=== PATIENT | female | born 1945 | race Caucasian/White ===

== ENCOUNTER 2017-01-24 16:46 | Inpatient (IN) | payer MEDICARE ==
[2017-01-24] MEDS ORDERED: Nitroglycerin 0.4 MG TAB (25 Tab Bottle) SL PRN (18:39)
[2017-01-24] MEDS ORDERED: Bisacodyl 5 MG TAB PO PRN (18:39)
[2017-01-24] MEDS: HYDROcodone/Acetaminophen 10/325 mg Tablet PO PRN (19:11)
[2017-01-24] MEDS ORDERED: Vancomycin HCl 750 MG in Sodium Chloride 0.9% 250 ML 250 ML IVPB SCH (19:15)
[2017-01-24] MEDS: Estradiol 1 MG TAB PO SCH (20:59)
[2017-01-24] MEDS: Docusate 100 MG CAP PO SCH (20:59)
[2017-01-24] MEDS: Metoprolol Tartrate 50 MG TAB PO SCH (20:59)
[2017-01-24 21:10] LABS: Vancomycin, Trough 18.1 ug/mL
[2017-01-24] MEDS: Vancomycin HCl 1 GM in Sodium Chloride 0.9% 250 ML 250 ML IVPB SCH (21:23)
[2017-01-24] MEDS ORDERED: MERREM IVPB SCH (22:00)
[2017-01-24] MEDS: Meropenem 500 MG in Sodium Chloride 0.9% 100 ML IVPB SCH ×2 (22:31)
--- NOTE | 2017-01-25 01:32 | HP ---
DATE OF ADMISSION: 01/24/2017 CHIEF COMPLAINT: Continued IV antibiotics, wound care, physical therapy for postoperative wound in her back. BRIEF HISTORY: This is a 71-year-old female who was admitted to [facility] on , with increasing pain in her incision site in her back. She apparently had lumbar spine crane rgery done. Thoracolumbar spine surgery done on 11/30 and had a cage placed by Dr. Grace from T1 0 to L3 per . Apparently the incision opened up and she was placed on Levaquin. She also maria d urinary catheter, which has been in place for a few months. She was noticing worsening pain and s ome drainage, and so presented to [facility]. She was evaluated and was noticed to have in fection growing Corynebacterium species. She was evaluated by Dr. Lorenz, who recommends that she be on Merrem, vancomycin for at least 4 more weeks. She was evaluated by Dr. Grace, who did the crane rgery and he recommended no wound VAC or removal of hardware, but continued wound packing entry heal ing by secondary intention. Wound care team has been managing the wound. She apparently has been h aving episodes of confusion and poor intake, but yesterday she apparently was more awake and eating and was deemed stable for discharge. Her states that her appetite has been fluctuating. No fever or chills. She continues to have a Walton catheter. PAST MEDICAL HISTORY: 1. Urinary retention. 2. Hypertension. 3. Coronary artery disease. 4. Paroxysmal atrial fibrillation. 5. Gastroesophageal reflux disease. 6. Osteoarthritis. 7. Thoracolumbar syndrome. 8. Hypothyroidism. 9. Dyslipidemia. PAST SURGICAL HISTORY: 1. Bilateral carpal tunnel release. 2. Laminectomy. 3. Radial keratotomy. 4. Left tennis elbow surgery. 5. History of spinal fusion with a cage from T10 to L3. 6. Radiofrequency ablation for possibly her AFib. 7. PTCA and stent placement. 8. Spinal stimulator placement. 9. Appendectomy. 10. Tonsillectomy. ALLERGIES: PENICILLIN, but she can tolerate MERREM. CURRENT MEDICATIONS: She has been admitted here with the following medications: Tylenol 650 q.4 p. r.n., Robert 10/325 q.6 p.r.n., Colace 100 mg b.i.d., Lasix 40 mg daily, Zestril 5 mg daily, Megace 4 00 mg daily, Merrem 1000 mg q.8 hours, Lopressor 50 mg b.i.d., Dulera inhaler 1 puff b.i.d. gargle stefany fter use, estradiol 1 mg daily, vancomycin 1 gram b.i.d., eye drops bimatoprost one drop daily, Plav ix 75 mg daily, Baskin thyroid 180 mg daily, Restasis 1 drop daily, Protonix 40 mg q.24 hours, Trama dol 50 mg q.6 p.r.n. FAMILY HISTORY: Noncontributory to current admission. PSYCHOSOCIAL HISTORY: No tobacco, alcohol, or IV drug abuse, supportive family. REVIEW OF SYSTEMS: Cardiovascular system: Denies any chest pain, shortness of breath, palpitations , PND, orthopnea, pedal edema. Respiratory system: Denies any chronic cough, expectoration, or ple uritic type chest pain. Gastrointestinal system: Denies any nausea, vomiting, GERD, diarrhea, cons tipation, hematemesis, melena, hematochezia. She has had episodes of anorexia. Genitourinary: She has some indwelling Walton catheter in place. Central Nervous System: Generalized weakness. She a lso has a flat affect. She is on aspiration precautions. PHYSICAL EXAMINATION: GENERAL: Pleasant 71-year-old female resting comfortably in no acute distress. VITAL SIGNS: She is afebrile. Heart rate is 84, respirations 16, oxygen saturation 98%, blood pres sure is 100/61. HEENT: Normocephalic, atraumatic. Pupils equal and reactive to light and accommodation. NECK: No JVD, thyromegaly, cervical adenopathy, throat exudates, or carotid bruits. CARDIOVASCULAR SYSTEM: S1, S2+, rate and rhythm regular. RESPIRATORY SYSTEM: Normal vesicular breath sounds heard in all lung robledo. ABDOMEN: Soft, nontender, bowel sounds heard in all quadrants. EXTREMITIES: Without cyanosis or clubbing. CENTRAL NERVOUS SYSTEM: Grossly nonfocal except generalized weakness. LABORATORY VALUES: Pending. IMPRESSION: 1. Lumbar spine surgery with wound dehiscence and infection requiring long-term antibiotics. 2. Hypertension. 3. Dyslipidemia. 4. Hypothyroidism. 5. Coronary artery disease. 6. Paroxysmal atrial fibrillation. 7. Deconditioning. PLAN: 1. Continue current medications. 2. Heart healthy diet. 3. Aspiration precautions. 4. DVT and stress ulcer prophylaxis. 5. Decubitus precautions. 6. Wound care per written instructions. 7. Vancomycin dosing to be adjusted by pharmacy. 8. Stress ulcer prophylaxis. 9. Weekly CBC, CRP, sed rate. 10. Consult physical therapy and occupational therapy. 11. Discussed with in detail. All questions answered. 12. We will make Dr. Grace for aware of her location if he wants to come and see her here or we will arrange for her to go visit him in his office.
[2017-01-25] MEDS: Meropenem 500 MG in Sodium Chloride 0.9% 100 ML IVPB SCH ×6 (05:30→22:39)
[2017-01-25] MEDS: Mometasone/Formoterol 60 PUFF AER INH SCH ×2 (05:31→17:52)
[2017-01-25 05:49] LABS: #Basophils 0.1 thou/uL (0.0-0.2); #Eosinphils 0.7 thou/uL (0.0-0.7); #Monocytes 1.1 thou/uL (0.11-0.59); #Neutrophils 8.2 thou/uL (1.40-6.50); %Eosinophils 5.9 % (0.0-10.0); %Lymphocytes 16.4 % (21.0-51.0); %Monocytes 9.3 % (0.0-10.0); %Neutrophils 67.4 % (42.0-75.0); Hemoglobin 12.1 g/dL (12.0-16.0); Mean Corpuscular HGB CONC 31.9 g/dL (32.0-36.0); Mean Corpuscular Hemoglobin 27.9 pg (27.0-31.0); Mean Corpuscular Volume 87.5 fl (81.0-99.0); Mean Platelet Volume 7.1 fL (7.4-10.4); Platelet Count 271 thou/uL (130-400); RBC Distribution Width 16.9 % (11.5-14.5); Red Blood Cell (RBC) Count 4.32 mill/uL (4.20-5.40); White Blood Cell (WBC) Count 12.2 thou/uL (4.8-10.8)
[2017-01-25 05:52] LABS: Anion Gap 14 mmol/L (10-20); BUN (Urea Nitrogen) 15 mg/dL (9.8-20.1); Calc. Creatinine Clearance 78 mL/min (70-130); Calcium 8.7 mg/dL (7.8-10.44); Carbon Dioxide 20 mmol/L (23-31); Chloride 106 mmol/L (98-107); Estimated GFR-MDRD Greater than 90; Glucose 80 mg/dL (80-115); Potassium 3.7 mmol/L (3.5-5.1); Sodium 136 mmol/L (136-145)
[2017-01-25] MEDS ORDERED: Vancomycin HCl 750 MG in Sodium Chloride 0.9% 250 ML 250 ML IVPB SCH (06:00)
[2017-01-25] MEDS ORDERED: Non-Formulary Item 1 EACH (Vancomycin Hcl [Vancomycin Hcl] 1 GM) IVPB SCH (06:00)
[2017-01-25] MEDS ORDERED: Vancomycin HCl 1 GM in Sodium Chloride 0.9% 250 ML 250 ML IVPB SCH (06:00)
[2017-01-25] MEDS: Vancomycin HCl 1 GM in Sodium Chloride 0.9% 250 ML 250 ML IVPB SCH ×2 (08:00→20:00)
[2017-01-25] MEDS ORDERED: Sodium Chloride 0.9% 20 ML ONE (08:24)
[2017-01-25] MEDS ORDERED: BIMATOPROST OP SCH (09:00)
[2017-01-25] MEDS: Clopidogrel Bisulfate 75 MG TAB PO SCH (09:00)
[2017-01-25] MEDS: Multivitamin W/ Minerals 1 TAB PO SCH (09:00)
[2017-01-25] MEDS: Furosemide 40 MG TAB PO SCH (09:00)
[2017-01-25] MEDS ORDERED: (Cyclosporine [Restasis Multidose] 1 DROP) OP SCH (09:00)
[2017-01-25] MEDS: CYCLOSPORINE OP SCH (09:00)
[2017-01-25] MEDS: Docusate 100 MG CAP PO SCH ×2 (09:00→20:29)
[2017-01-25] MEDS: Metoprolol Tartrate 50 MG TAB PO SCH ×2 (09:00→20:29)
[2017-01-25] MEDS: Megestrol Acetate 800 MG/20 ML UDCUP PO SCH (09:00)
[2017-01-25] MEDS: Lisinopril 5 MG TAB PO SCH (09:00)
[2017-01-25] MEDS: HYDROcodone/Acetaminophen 10/325 mg Tablet PO PRN (09:55)
[2017-01-25] MEDS: traMADol HCl 50 MG TAB PO PRN (15:40)
[2017-01-25] MEDS ORDERED: Citalopram Hydrobromide 10 MG TAB PO SCH (16:15)
[2017-01-25] MEDS: Citalopram Hydrobromide 10 MG TAB PO SCH (16:24)
[2017-01-25] MEDS: Enoxaparin Sodium 40 MG/0.4 ML SYRINGE SC SCH (17:50)
[2017-01-25] MEDS ORDERED: Sodium Chloride 0.9% 250 ML 250 ML ONE (20:03)
[2017-01-25] MEDS: Estradiol 1 MG TAB PO SCH (20:29)
[2017-01-25] MEDS: Latanoprost 0.005% Ophth Soln 2.5 ml Bottle EA EYE SCH (20:29)
--- NOTE | 2017-01-25 22:47 | PRG ---
DATE OF SERVICE: 01/25/2017 SUBJECTIVE: Ms. Almonte is more awake, up in her bed, eating lunch. She apparently did not eating a good breakfast, but she is eating lunch. She is also drinking her Ensure. and son are in t he room. I did discuss with them about possibly trying some antidepressants and she has a flat affe ct and they also said that they were thinking about the same thing. I did discuss with therapy and therapy feels that she needs daily wound care and they have apparently given instructions to the boris ses, family is aware. OBJECTIVE: VITAL SIGNS: She is afebrile, heart rate is 81, respiration rate 16, oxygen saturation 94%, blood p ressure 118/80. CARDIOVASCULAR: S1, S2 plus. RESPIRATORY: Normal vesicular breath sounds. ABDOMEN: Soft, nontender, bowel sounds heard in all quadrants. EXTREMITIES: Without cyanosis, clubbing or generalized weakness. LABORATORY VALUES: White count 12.2, H\T\H is 12.1 and 37.8. Chemistry shows a sodium 136, potassi um 3.7, BUN and creatinine is 15 and 0.62. IMPRESSION: 1. Wound dehiscence with infection in her back requiring long-term IV antibiotics. 2. Urinary retention, has Walton catheter. 3. Hypertension. 4. Coronary artery disease. 5. Paroxysmal atrial fibrillation. 6. Gastroesophageal reflux disease. 7. Osteoarthritis. 8. Hypothyroidism. 9. Dyslipidemia. 10. Depression. PLAN: 1. Start Celexa 10 mg p.o. daily. 2. Continue meropenem and vancomycin. 3. Nutritional support. 4. DVT and stress ulcer prophylaxis. 5. Decubitus precautions. 6. Daily wound dressing. 7. Weekly CBC, CRP, sed rate. 8. Physical therapy, occupational therapy, and speech therapy. 9. Dr. Camarillo customer retention specialist noon today till 9:00 p.m Saturday. Family aware and all questions answered.
[2017-01-26] MEDS: Meropenem 500 MG in Sodium Chloride 0.9% 100 ML IVPB SCH ×6 (05:58→22:07)
[2017-01-26] MEDS: Mometasone/Formoterol 60 PUFF AER INH SCH ×2 (06:37→19:20)
[2017-01-26 07:27] LABS: Hemoglobin 11.4 g/dL (12.0-16.0); Platelet Count 233 thou/uL (130-400)
[2017-01-26 07:36] LABS: Vancomycin, Trough 22.3 ug/mL
[2017-01-26 07:37] LABS: Calc. Creatinine Clearance 87 mL/min (70-130); Estimated GFR-MDRD Greater than 90
--- NOTE | 2017-01-26 08:30 | PRG ---
DATE OF SERVICE: 01/26/2017 SUBJECTIVE: The patient is lying in the bed awake, states she is in some pain, but appears to be ma inly depressed and possibly confused with a flat affect, states she is not eating very well, has no complaints of shortness of breath or chest pain, nausea, vomiting, or diarrhea. OBJECTIVE: VITAL SIGNS: Show her temperature is 98, pulse 105, respirations 20, O2 sats 97%. LUNGS: Clear. CARDIAC: Examination shows regular rhythm. BACK: Wound in the back is packed. Appears to be not inflamed with no drainage. GASTROINTESTINAL: Abdomen is soft and nontender. SKIN AND EXTREMITIES: Showed no edema. MUSCULOSKELETAL: Cranial nerves are intact. Deep tendon reflexes 2+ equal, absent Babinskis. NEUROLOGIC: Patient is oriented to person, but not to place and time. As mentioned above, has a ve ry flat affect. LABORATORY DATA: Yesterday only showed minimal white count of 12,200. Lungs are ASSESSMENT AND PLAN: 1. 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 2. Flat affect and disorientation, possibly due to severe depression. There is no evidence of any metabolic encephalopathy causing her symptomatology and we will monitor if she has recently been sta rted on antidepressants. 3. Poor oral intake and we will monitor closely and we will stress need for increased nutrition wit h supplements. 4. We will continue deep venous thrombosis and stress ulcer prophylaxis. 5. We will continue tramadol as needed for pain relief and stress. The patient to be up in a chair and ambulate with physical therapy when available.
[2017-01-26] MEDS: Acetaminophen 325 MG TAB PO PRN ×3 (08:34→19:16)
[2017-01-26] MEDS: traMADol HCl 50 MG TAB PO PRN ×3 (08:35→19:16)
[2017-01-26] MEDS: Vancomycin HCl 1 GM in Sodium Chloride 0.9% 250 ML 250 ML IVPB SCH (08:45)
[2017-01-26] MEDS: Docusate 100 MG CAP PO SCH ×2 (09:22→20:22)
[2017-01-26] MEDS: Multivitamin W/ Minerals 1 TAB PO SCH (09:22)
[2017-01-26] MEDS: Furosemide 40 MG TAB PO SCH (09:22)
[2017-01-26] MEDS: Clopidogrel Bisulfate 75 MG TAB PO SCH (09:22)
[2017-01-26] MEDS: Citalopram Hydrobromide 10 MG TAB PO SCH (09:23)
[2017-01-26] MEDS: Megestrol Acetate 800 MG/20 ML UDCUP PO SCH (09:24)
[2017-01-26] MEDS: CYCLOSPORINE OP SCH (09:24)
[2017-01-26] MEDS: Metoprolol Tartrate 50 MG TAB PO SCH ×2 (09:25→20:22)
[2017-01-26] MEDS: Lisinopril 5 MG TAB PO SCH (09:25)
[2017-01-26] MEDS: Vancomycin HCl 750 MG in Sodium Chloride 0.9% 250 ML 250 ML IVPB SCH ×2 (09:45→20:24)
[2017-01-26] MEDS: Enoxaparin Sodium 40 MG/0.4 ML SYRINGE SC SCH (19:17)
[2017-01-26] MEDS: Estradiol 1 MG TAB PO SCH (20:22)
[2017-01-26] MEDS: Latanoprost 0.005% Ophth Soln 2.5 ml Bottle EA EYE SCH (20:22)
[2017-01-26] MEDS: HYDROcodone/Acetaminophen 10/325 mg Tablet PO PRN (22:14)
[2017-01-27] MEDS: Meropenem 500 MG in Sodium Chloride 0.9% 100 ML IVPB SCH ×6 (05:21→22:17)
[2017-01-27] MEDS: Mometasone/Formoterol 60 PUFF AER INH SCH ×2 (05:31→18:15)
[2017-01-27 05:58] LABS: Calc. Creatinine Clearance 83 mL/min (70-130); Estimated GFR-MDRD Greater than 90
[2017-01-27] MEDS: Acetaminophen 325 MG TAB PO PRN ×2 (07:47→13:25)
[2017-01-27] MEDS: traMADol HCl 50 MG TAB PO PRN ×2 (07:47→13:25)
[2017-01-27] MEDS: Citalopram Hydrobromide 10 MG TAB PO SCH (08:03)
[2017-01-27] MEDS: Docusate 100 MG CAP PO SCH ×2 (08:04→20:50)
[2017-01-27] MEDS: Clopidogrel Bisulfate 75 MG TAB PO SCH (08:04)
[2017-01-27] MEDS: Megestrol Acetate 800 MG/20 ML UDCUP PO SCH (08:04)
[2017-01-27] MEDS: Lisinopril 5 MG TAB PO SCH (08:04)
[2017-01-27] MEDS: Multivitamin W/ Minerals 1 TAB PO SCH (08:04)
[2017-01-27] MEDS: Furosemide 40 MG TAB PO SCH (08:04)
[2017-01-27] MEDS: Metoprolol Tartrate 50 MG TAB PO SCH ×2 (08:04→20:50)
[2017-01-27] MEDS: Vancomycin HCl 750 MG in Sodium Chloride 0.9% 250 ML 250 ML IVPB SCH ×2 (09:04→20:51)
[2017-01-27] MEDS: CYCLOSPORINE OP SCH (09:05)
--- NOTE | 2017-01-27 10:09 | PRG ---
DATE OF SERVICE: 01/27/2017 Patient of Deepa Cordova M.D. SUBJECTIVE: The patient is a 71-year-old white female with history of an infection of a laminectomy with hardware placement who feels much better today with decreased pain, increased moving, increase d strength and asking to get out of bed and go to the bathroom. She states she slept much better la st night and has decreased pain in her legs, only some weakness in her legs and tingling. OBJECTIVE: VITAL SIGNS: Temperature is 97.3, pulse 88, respirations 18, O2 sats 96%, and blood pressure 113/67 . LUNGS: Clear. CARDIAC: Regular rhythm. ABDOMEN: Soft, nontender. Wound is clean and packed. LABORATORY DATA: Hemoglobin 11.4, hematocrit 35, and platelet 233. Vancomycin trough level yesterd ay was slightly elevated at 22.3 and dose was changed to 750 mg q.12 by pharmacy. ASSESSMENT: 1. Resolving Corynebacterium infection of artificial hardware laminectomy on meropenem and vancomyc in for 4 weeks with slightly elevated vancomycin level and decrease dose to 750 q.12. 2. Greatly improving affect and mood, possibly due to improvement in symptoms, possibly due to chayo lopram therapy and we will continue. 3. Poor oral intake, which is improving as the patient states that she is having increased appetite and did eat 90% of lunch yesterday and 50% of dinner and did eat her Ensure Complete. PLAN: Continue vancomycin at decrease dose. Continue meropenem. Continue citalopram. Stress incr eased ambulation. Continue to monitor oral intake. Dr. Cordova will be back tomorrow.
[2017-01-27] MEDS: Enoxaparin Sodium 40 MG/0.4 ML SYRINGE SC SCH (18:15)
[2017-01-27 20:27] LABS: Vancomycin, Trough 20.3 ug/mL
[2017-01-27] MEDS: Estradiol 1 MG TAB PO SCH (20:50)
[2017-01-27] MEDS: Latanoprost 0.005% Ophth Soln 2.5 ml Bottle EA EYE SCH (20:50)
[2017-01-27] MEDS: HYDROcodone/Acetaminophen 10/325 mg Tablet PO PRN (20:57)
[2017-01-28] MEDS: Meropenem 500 MG in Sodium Chloride 0.9% 100 ML IVPB SCH ×6 (05:22→21:48)
[2017-01-28] MEDS: Mometasone/Formoterol 60 PUFF AER INH SCH ×2 (05:42→17:23)
[2017-01-28 05:54] LABS: Calc. Creatinine Clearance 84 mL/min (70-130); Estimated GFR-MDRD Greater than 90
[2017-01-28] MEDS: Clopidogrel Bisulfate 75 MG TAB PO SCH (08:34)
[2017-01-28] MEDS: Citalopram Hydrobromide 10 MG TAB PO SCH (08:34)
[2017-01-28] MEDS: Lisinopril 5 MG TAB PO SCH (08:36)
[2017-01-28] MEDS: Furosemide 40 MG TAB PO SCH (08:36)
[2017-01-28] MEDS: CYCLOSPORINE OP SCH (08:36)
[2017-01-28] MEDS: Docusate 100 MG CAP PO SCH ×2 (08:36→20:15)
[2017-01-28] MEDS: Megestrol Acetate 800 MG/20 ML UDCUP PO SCH (08:37)
[2017-01-28] MEDS: Vancomycin HCl 750 MG in Sodium Chloride 0.9% 250 ML 250 ML IVPB SCH ×2 (08:38→20:11)
[2017-01-28] MEDS: Metoprolol Tartrate 50 MG TAB PO SCH ×2 (08:38→20:15)
[2017-01-28] MEDS: Multivitamin W/ Minerals 1 TAB PO SCH (08:38)
[2017-01-28] MEDS: HYDROcodone/Acetaminophen 10/325 mg Tablet PO PRN (08:41)
--- NOTE | 2017-01-28 14:05 | PRG ---
DATE OF SERVICE: 01/28/2017 SUBJECTIVE: Ms. Almonte is doing well. She is up in her chair. She apparently ate a good breakfast, did not eat a whole lot of lunch. She is drinking 3 Ensure's a day. Both her and son are in the room. They state that she apparently was more lucid yesterday and they think that it may be her hydrocodone. They really want to try giving her the tramadol routinely and hydrocodone only as needed. No other concerns or questions. OBJECTIVE: VITAL SIGNS: She is afebrile, heart rate is 84, respiration is 18, oxygen saturation 99%, blood pre ssure is 127/82. CARDIOVASCULAR: S1, S2 plus. RESPIRATORY: Normal vesicular breath sounds. ABDOMEN: Soft, nontender, bowel sounds heard in all quadrants. EXTREMITIES: Without cyanosis or clubbing. IMPRESSION: 1. Surgical incision in her back requiring wound packing. 2. Corynebacterium species growing from the wound requiring IV antibiotics. 3. Cognitive dysfunction. 4. Depression. 5. Deconditioning. 6. Gastroesophageal reflux disease. 7. Coronary artery disease. 8. Hypertension. 9. Urinary retention. 10. Hypothyroidism. 112. Dyslipidemia. PLAN: 1. Continue current antibiotic regimen. 2. Pharmacy to adjust vancomycin dosing. 3. Wound care per physical therapy. 4. DVT and stress ulcer prophylaxis. 5. Decubitus precautions. 6. Routine laboratory values. 7. Nutritional support. 8. Discussed with the and son in detail. They still concerned about her cognitive dysfunct ion. We will try tramadol 50 mg with 2 Tylenol t.i.d. and then hydrocodone only as needed. 9. If there is still no improvement in her cognitive dysfunction, even after finishing her antibiot ic regimen and her wound is healing, then she may need to get an EEG and MRI and get worked up for c ognitive deficits. Her primary care physician is Dr. Hanna and we will send all this information to her. Her discharge planning will depend upon how much improvement she does. The family understands.
[2017-01-28] MEDS ORDERED: traMADol HCl 50 MG TAB PO SCH (14:30)
[2017-01-28] MEDS: Enoxaparin Sodium 40 MG/0.4 ML SYRINGE SC SCH (17:23)
[2017-01-28] MEDS: Estradiol 1 MG TAB PO SCH (20:15)
[2017-01-28] MEDS: Latanoprost 0.005% Ophth Soln 2.5 ml Bottle EA EYE SCH (20:15)
[2017-01-28] MEDS: traMADol HCl 50 MG TAB PO SCH (21:47)
[2017-01-29] MEDS: Meropenem 500 MG in Sodium Chloride 0.9% 100 ML IVPB SCH ×6 (05:29→21:56)
[2017-01-29] MEDS: traMADol HCl 50 MG TAB PO SCH ×3 (05:30→21:55)
[2017-01-29] MEDS: Mometasone/Formoterol 60 PUFF AER INH SCH ×2 (05:38→17:56)
[2017-01-29 08:52] LABS: Vancomycin, Trough 15.9 ug/mL
[2017-01-29 09:12] LABS: Calc. Creatinine Clearance 91 mL/min (70-130); Estimated GFR-MDRD Greater than 90
[2017-01-29] MEDS: Clopidogrel Bisulfate 75 MG TAB PO SCH (09:20)
[2017-01-29] MEDS: CYCLOSPORINE OP SCH (09:20)
[2017-01-29] MEDS: Furosemide 40 MG TAB PO SCH (09:20)
[2017-01-29] MEDS: Docusate 100 MG CAP PO SCH ×2 (09:20→20:35)
[2017-01-29] MEDS: Citalopram Hydrobromide 10 MG TAB PO SCH (09:20)
[2017-01-29] MEDS: Megestrol Acetate 800 MG/20 ML UDCUP PO SCH (09:21)
[2017-01-29] MEDS: Lisinopril 5 MG TAB PO SCH (09:21)
[2017-01-29] MEDS: Vancomycin HCl 750 MG in Sodium Chloride 0.9% 250 ML 250 ML IVPB SCH ×2 (09:22→20:36)
[2017-01-29] MEDS: Metoprolol Tartrate 50 MG TAB PO SCH ×2 (09:23→20:35)
[2017-01-29] MEDS: Acetaminophen 325 MG TAB PO PRN (09:25)
[2017-01-29] MEDS: Multivitamin W/ Minerals 1 TAB PO SCH (09:28)
[2017-01-29] MEDS ORDERED: Sodium Chloride 0.9% 20 ML ONE ×2 (10:47→14:22)
[2017-01-29] MEDS: HYDROcodone/Acetaminophen 10/325 mg Tablet PO PRN (13:10)
--- NOTE | 2017-01-29 14:13 | PRG ---
DATE OF SERVICE: 01/29/2017 SUBJECTIVE: Ms. Almonte is doing well. Denies any complaints. Her and one of her sisters is in the room. She apparently is still having significant episodes of confusion. She is still drink ing Ensure. No fever or chills. OBJECTIVE: VITAL SIGNS: She is afebrile, heart rate is 83, respirations 18, oxygen saturation is 97%, blood pr essure 150/97, normally at 117/70. CARDIOVASCULAR: S1, S2 plus. RESPIRATORY: Normal vesicular breath sounds. ABDOMEN: Soft, nontender, bowel sounds heard in all quadrants. EXTREMITIES: Without cyanosis or clubbing. There was concern of some deep tissue injury to her rachael ls, but when I examined it, her right heel looks completely normal. In left heel, no significant is sues as well. LABORATORY DATA: H\T\H is 11.4 and 35.8. IMPRESSION: 1. Dehiscence of incision in her back, status post fusion of T10 to L3, requiring wound packing and IV antibiotics. 2. Episodes of confusion, possibly multifactorial. 3. Decreased p.o. intake. 4. Coronary artery disease without angina. 5. Significant deconditioning. 6. Gastroesophageal reflux disease. 7. Hypertension. 8. Hypothyroidism. 9. Dyslipidemia. 10. Urinary retention. PLAN: 1. Recheck routine laboratory values. 2. Wound care. 3. Decubitus precautions. 4. Deep venous thrombosis and stress ulcer prophylaxis. 5. Decubitus precautions. 6. Encourage p.o. intake. 7. Discussed with family in detail and advised them that her cognitive dysfunction may be completel y separate from her infection even though infection may cause some worsening, we will have to contin ue to monitor her and she has been off her hydrocodone since yesterday afternoon and she still is maria ving confusion, so I am not sure if it is related to the pain medicine, but we will try to keep her off it for another 24-48 hours and just continue the tramadol. Weekly CBC, CRP, sed rate. We will also inform Dr. Grace about her location.
[2017-01-29] MEDS: Enoxaparin Sodium 40 MG/0.4 ML SYRINGE SC SCH (17:51)
[2017-01-29] MEDS: Latanoprost 0.005% Ophth Soln 2.5 ml Bottle EA EYE SCH (20:34)
[2017-01-29] MEDS: Estradiol 1 MG TAB PO SCH (20:35)
[2017-01-30] MEDS: Meropenem 500 MG in Sodium Chloride 0.9% 100 ML IVPB SCH ×6 (05:30→22:18)
[2017-01-30] MEDS: Mometasone/Formoterol 60 PUFF AER INH SCH ×2 (05:32→18:52)
[2017-01-30] MEDS: traMADol HCl 50 MG TAB PO SCH ×3 (05:33→20:55)
[2017-01-30 08:11] LABS: #Basophils 0.2 thou/uL (0.0-0.2); #Eosinphils 0.5 thou/uL (0.0-0.7); #Lymphocytes 1.7 thou/uL (1.20-3.40); %Basophils 2.2 % (0.0-1.0); %Eosinophils 5.6 % (0.0-10.0); %Lymphocytes 17.8 % (21.0-51.0); %Monocytes 10.6 % (0.0-10.0); %Neutrophils 63.8 % (42.0-75.0); Mean Corpuscular HGB CONC 31.7 g/dL (32.0-36.0); Mean Corpuscular Hemoglobin 27.8 pg (27.0-31.0); Mean Corpuscular Volume 87.7 fl (81.0-99.0); Mean Platelet Volume 8.1 fL (7.4-10.4); Platelet Count 190 thou/uL (130-400); RBC Distribution Width 17.2 % (11.5-14.5); White Blood Cell (WBC) Count 9.3 thou/uL (4.8-10.8)
[2017-01-30 08:25] LABS: Anion Gap 14 mmol/L (10-20); BUN (Urea Nitrogen) 19 mg/dL (9.8-20.1); Calc. Creatinine Clearance 91 mL/min (70-130); Calcium 9.1 mg/dL (7.8-10.44); Carbon Dioxide 23 mmol/L (23-31); Chloride 106 mmol/L (98-107); Estimated GFR-MDRD Greater than 90; Glucose 82 mg/dL (80-115); Sodium 139 mmol/L (136-145)
[2017-01-30] MEDS: CYCLOSPORINE OP SCH (09:50)
[2017-01-30] MEDS: Multivitamin W/ Minerals 1 TAB PO SCH (09:55)
[2017-01-30] MEDS: Clopidogrel Bisulfate 75 MG TAB PO SCH (09:55)
[2017-01-30] MEDS: Furosemide 40 MG TAB PO SCH (09:55)
[2017-01-30] MEDS: Metoprolol Tartrate 50 MG TAB PO SCH ×2 (09:55→20:54)
[2017-01-30] MEDS: Citalopram Hydrobromide 10 MG TAB PO SCH (09:55)
[2017-01-30] MEDS: Docusate 100 MG CAP PO SCH ×2 (09:55→20:53)
[2017-01-30] MEDS: Megestrol Acetate 800 MG/20 ML UDCUP PO SCH (09:56)
[2017-01-30] MEDS: Lisinopril 5 MG TAB PO SCH (09:57)
[2017-01-30] MEDS: Vancomycin HCl 750 MG in Sodium Chloride 0.9% 250 ML 250 ML IVPB SCH ×2 (10:06→20:54)
[2017-01-30] MEDS: Acetaminophen 325 MG TAB PO PRN ×2 (11:00→14:57)
--- NOTE | 2017-01-30 13:29 | PRG ---
DATE OF SERVICE: 01/30/2017 SUBJECTIVE: Ms. Almonte is doing well. She apparently ate a good supper and she ate most of her lunc h. She apparently walked with therapy. Therapy stated to the nursing staff that the wound is looki ng healthy and they do not see any deterioration. Wound culture was negative. OBJECTIVE: VITAL SIGNS: She is afebrile, heart rate is 89, respirations are 18, blood pressure 122/76, oxygen saturation is 100%. CARDIOVASCULAR: S1, S2 plus. RESPIRATORY: Normal vesicular breath sounds. ABDOMEN: Soft, nontender, bowel sounds heard in all quadrants. EXTREMITIES: Without cyanosis or clubbing. LABORATORY VALUES: Sodium 139, potassium 4.0, BUN and creatinine is 19 and 0.53. White count is 9. 3, H\T\H is 10 and 31.6. IMPRESSION: 1. Wound dehiscence with infection requiring long-term antibiotics off her spinal surgery. 2. Recent T10-L3 lumbar spine fusion. 3. Coronary artery disease without angina. 4. Deconditioning. 5. Fluctuating cognitive status. 6. Gastroesophageal reflux disease. 7. Hypertension. 8. Hypothyroidism. 9. Dyslipidemia. PLAN: 1. Continue antibiotics. 2. Weekly CBC, CRP, sed rate. 3. DVT and stress ulcer prophylaxis. 4. Decubitus precautions. 5. Walton catheter care for urinary retention. 6. Nutritional support. 7. Monitor cognitive function. 8. I discussed with the family in detail and all questions answered.
[2017-01-30] MEDS: Enoxaparin Sodium 40 MG/0.4 ML SYRINGE SC SCH (18:53)
[2017-01-30] MEDS: Estradiol 1 MG TAB PO SCH (20:53)
[2017-01-30] MEDS: Latanoprost 0.005% Ophth Soln 2.5 ml Bottle EA EYE SCH (20:56)
[2017-01-31] MEDS: Meropenem 500 MG in Sodium Chloride 0.9% 100 ML IVPB SCH ×6 (05:30→21:37)
[2017-01-31] MEDS: traMADol HCl 50 MG TAB PO SCH ×3 (05:32→21:35)
[2017-01-31 05:33] LABS: Calc. Creatinine Clearance 82 mL/min (70-130); Estimated GFR-MDRD Greater than 90
[2017-01-31] MEDS: Mometasone/Formoterol 60 PUFF AER INH SCH ×2 (05:33→17:56)
[2017-01-31] MEDS: Megestrol Acetate 800 MG/20 ML UDCUP PO SCH (09:13)
[2017-01-31] MEDS: Metoprolol Tartrate 50 MG TAB PO SCH ×2 (09:14→21:34)
[2017-01-31] MEDS: Lisinopril 5 MG TAB PO SCH (09:14)
[2017-01-31] MEDS: CYCLOSPORINE OP SCH (09:15)
[2017-01-31] MEDS: Furosemide 40 MG TAB PO SCH (09:15)
[2017-01-31] MEDS: Clopidogrel Bisulfate 75 MG TAB PO SCH (09:15)
[2017-01-31] MEDS: Citalopram Hydrobromide 10 MG TAB PO SCH (09:15)
[2017-01-31] MEDS: Multivitamin W/ Minerals 1 TAB PO SCH (09:15)
[2017-01-31] MEDS: Vancomycin HCl 750 MG in Sodium Chloride 0.9% 250 ML 250 ML IVPB SCH ×2 (09:16→21:36)
[2017-01-31] MEDS: Docusate 100 MG CAP PO SCH ×2 (09:16→21:28)
--- NOTE | 2017-01-31 13:33 | PRG ---
DATE OF SERVICE: 01/31/2017 SUBJECTIVE: Ms. Almonte is doing the same. She is up in her chair. She apparently ate 50% of breakf ast. She is still drinking her Ensure. Sister denies any other concerns. OBJECTIVE: VITAL SIGNS: She is afebrile, heart rate is 89, respirations 18, oxygen saturation is 99%, blood pr essure 155/79. CARDIOVASCULAR: S1, S2 plus. RESPIRATORY: Normal vesicular breath sounds. ABDOMEN: Soft, nontender, bowel sounds heard in all quadrants. EXTREMITIES: Without cyanosis or clubbing. IMPRESSION: 1. Dehisced surgical incision in her back with possible infection requiring long-term IV antibiotic s. 2. Coronary artery disease with angina. 3. Hypertension. 4. Cognitive dysfunction. 5. Gastroesophageal reflux disease. 6. Dyslipidemia. PLAN: 1. Check CBC, CRP, and sed rate. 2. Add CMP. 3. Continue nutritional support. 4. Physical therapy. 5. Wound care. 6. Walton catheter care. 7. DVT and stress ulcer prophylaxis. 8. Decubitus precautions. 9. Discussed with family and all questions answered.
[2017-01-31] MEDS: Acetaminophen 325 MG TAB PO PRN (15:07)
[2017-01-31] MEDS: Enoxaparin Sodium 40 MG/0.4 ML SYRINGE SC SCH (17:56)
[2017-01-31] MEDS: Estradiol 1 MG TAB PO SCH (21:34)
[2017-01-31] MEDS: Latanoprost 0.005% Ophth Soln 2.5 ml Bottle EA EYE SCH (21:48)
[2017-02-01] MEDS: traMADol HCl 50 MG TAB PO SCH ×3 (06:01→21:39)
[2017-02-01] MEDS: Mometasone/Formoterol 60 PUFF AER INH SCH ×2 (06:02→17:53)
[2017-02-01] MEDS: Meropenem 500 MG in Sodium Chloride 0.9% 100 ML IVPB SCH ×6 (06:04→21:40)
[2017-02-01 07:56] LABS: #Basophils 0.2 thou/uL (0.0-0.2); #Eosinphils 0.5 thou/uL (0.0-0.7); #Lymphocytes 1.8 thou/uL (1.20-3.40); #Monocytes 1.1 thou/uL (0.11-0.59); #Neutrophils 4.6 thou/uL (1.40-6.50); %Basophils 2.5 % (0.0-1.0); %Lymphocytes 21.8 % (21.0-51.0); %Monocytes 13.4 % (0.0-10.0); %Neutrophils 56.3 % (42.0-75.0); Hemoglobin 10.1 g/dL (12.0-16.0); Mean Corpuscular HGB CONC 31.6 g/dL (32.0-36.0); Mean Corpuscular Hemoglobin 27.6 pg (27.0-31.0); Mean Corpuscular Volume 87.3 fl (81.0-99.0); Platelet Count 196 thou/uL (130-400); Red Blood Cell (RBC) Count 3.66 mill/uL (4.20-5.40); White Blood Cell (WBC) Count 8.1 thou/uL (4.8-10.8)
[2017-02-01 08:28] LABS: ALT (SGPT) 21 U/L (8-55); AST (SGOT) 20 U/L (5-34); Alkaline Phosphatase 82 U/L (40-150); Anion Gap 15 mmol/L (10-20); BUN (Urea Nitrogen) 16 mg/dL (9.8-20.1); Bilirubin, Total 0.4 mg/dL (0.2-1.2); Calc. Creatinine Clearance 86 mL/min (70-130); Calcium 9.3 mg/dL (7.8-10.44); Carbon Dioxide 20 mmol/L (23-31); Chloride 105 mmol/L (98-107); Estimated GFR-MDRD Greater than 90; Globulin 2.6 g/dL (2.4-3.5); Glucose 87 mg/dL (80-115); Potassium 3.8 mmol/L (3.5-5.1); Protein, Total 5.6 g/dL (6.0-8.3); Sodium 136 mmol/L (136-145)
[2017-02-01] MEDS: Metoprolol Tartrate 50 MG TAB PO SCH ×2 (09:35→20:46)
[2017-02-01] MEDS: Citalopram Hydrobromide 10 MG TAB PO SCH (09:35)
[2017-02-01] MEDS: Clopidogrel Bisulfate 75 MG TAB PO SCH (09:36)
[2017-02-01] MEDS: Furosemide 40 MG TAB PO SCH (09:36)
[2017-02-01] MEDS: Docusate 100 MG CAP PO SCH ×2 (09:36→20:45)
[2017-02-01] MEDS: Lisinopril 5 MG TAB PO SCH (09:36)
[2017-02-01] MEDS: Multivitamin W/ Minerals 1 TAB PO SCH (09:37)
[2017-02-01] MEDS: Megestrol Acetate 800 MG/20 ML UDCUP PO SCH (09:37)
[2017-02-01] MEDS: CYCLOSPORINE OP SCH (09:37)
[2017-02-01 10:43] LABS: Vancomycin, Trough 16.8 ug/mL
[2017-02-01] MEDS: Vancomycin HCl 750 MG in Sodium Chloride 0.9% 250 ML 250 ML IVPB SCH ×2 (10:53→20:47)
[2017-02-01] MEDS ORDERED: Vancomycin HCl 750 MG in Sodium Chloride 0.9% 250 ML 250 ML IVPB SCH (12:15)
[2017-02-01] MEDS ORDERED: Vancomycin HCl 750 MG VIAL ONE (12:16)
--- NOTE | 2017-02-01 12:18 | PRG ---
DATE OF SERVICE: 02/01/2017 SUBJECTIVE: Ms. Almonte is up in her chair. Denies any complains. She is confused. Discussed with nursing and they had noticed this confusion to be more on the persistent side. OBJECTIVE: VITAL SIGNS: She is afebrile, heart rate is 87, respirations are 22, oxygen saturation is 98%, bloo d pressure is 133/71. CARDIOVASCULAR SYSTEM: S1, S2 plus. RESPIRATORY SYSTEM: Normal vesicular breath sounds. ABDOMEN: Soft, nontender, bowel sounds heard in all quadrants. EXTREMITIES: Without cyanosis or clubbing. Walton catheter in place. LABORATORY VALUES: Vancomycin trough is 16. Sodium 136, potassium 3.8, BUN and creatinine 16 and 0 .56. AST and ALT are normal. C-reactive protein is pending. White count is 8.1, H\T\H is 10.1 and 31.9. Sed rate is pending. IMPRESSION: 1. Dehiscence of back incision with corynebacterium requiring long-term antibiotics. 2. Coronary artery disease without angina. 3. Hypertension. 4. Dyslipidemia. 5. Depression. 6. Cognitive dysfunction. 7. Significant deconditioning. 8. Hypothyroidism. PLAN: 1. Continue current medications. 2. Nutritional support. 3. Daily wound care. 4. Antibiotics. 5. DVT and stress ulcer prophylaxes. 6. Await CRP and sed rate. Monitor cognitive dysfunction. I really do not see it CD infection or any metabolic causes for it. No family at the bedside at present. Dr. Camarillo customer relations specialist this maximiliano lo
[2017-02-01] MEDS: Enoxaparin Sodium 40 MG/0.4 ML SYRINGE SC SCH (17:53)
[2017-02-01] MEDS: Latanoprost 0.005% Ophth Soln 2.5 ml Bottle EA EYE SCH (20:45)
[2017-02-01] MEDS: Estradiol 1 MG TAB PO SCH (20:45)
[2017-02-02 05:20] LABS: Calc. Creatinine Clearance 89 mL/min (70-130); Estimated GFR-MDRD Greater than 90
[2017-02-02] MEDS: Meropenem 500 MG in Sodium Chloride 0.9% 100 ML IVPB SCH ×6 (05:29→22:13)
[2017-02-02] MEDS: traMADol HCl 50 MG TAB PO SCH ×3 (05:30→22:11)
[2017-02-02] MEDS: Mometasone/Formoterol 60 PUFF AER INH SCH ×2 (05:34→18:11)
[2017-02-02] MEDS: Citalopram Hydrobromide 10 MG TAB PO SCH (09:18)
[2017-02-02] MEDS: Clopidogrel Bisulfate 75 MG TAB PO SCH (09:18)
[2017-02-02] MEDS: Docusate 100 MG CAP PO SCH ×2 (09:19→22:10)
[2017-02-02] MEDS: Lisinopril 5 MG TAB PO SCH (09:19)
[2017-02-02] MEDS: Furosemide 40 MG TAB PO SCH (09:19)
[2017-02-02] MEDS: Megestrol Acetate 800 MG/20 ML UDCUP PO SCH (09:19)
[2017-02-02] MEDS: CYCLOSPORINE OP SCH (09:19)
[2017-02-02] MEDS: Vancomycin HCl 750 MG in Sodium Chloride 0.9% 250 ML 250 ML IVPB SCH ×2 (09:20→22:13)
[2017-02-02] MEDS: Multivitamin W/ Minerals 1 TAB PO SCH (09:20)
[2017-02-02] MEDS: Metoprolol Tartrate 50 MG TAB PO SCH ×2 (09:20→22:11)
--- NOTE | 2017-02-02 11:41 | PRG ---
DATE OF SERVICE: 02/02/2017 SUBJECTIVE: The patient feels much better, awake and alert with decreased back pain, eating well, m ore alert, responsive; however, still appears to be depressed and tearful, is having some problems s till with the length of her illness and some difficulty with her memory loss. Although, the patient does appear to be markedly improved from last week when I seen by myself. OBJECTIVE: VITAL SIGNS: Temperature is 98, pulse was 91, O2 sats 96% on room air, respirations 20, blood press ure 139/64. LABORATORY DATA: Sed rate yesterday was 59, vancomycin trough therapeutic yesterday was 16.8, creat inine today is stable at 0.54, sodium yesterday was 136, potassium 3.8, chloride 105, bicarbonate 24 . White count was normal at 8100, hematocrit 31, hemoglobin 10. ASSESSMENT: 1. Resolving corynebacterium infection of hardware of the spine. 2. Stable coronary artery disease with no symptoms. 3. Stable hypertension. 4. Persistent depression, but appears to be improving. 5. Cognitive dysfunction, persistent but improving from last week. 6. Significant deconditioning, improving. PLAN: Continue medications. Continue nutritional support. Discuss with speech and ensure the rachide has seen, the patient is of cognitive dysfunction. Continue IV antibiotics. It does appear to b e improving. Continue daily wound care.
[2017-02-02] MEDS: HYDROcodone/Acetaminophen 10/325 mg Tablet PO PRN (12:15)
[2017-02-02] MEDS: Enoxaparin Sodium 40 MG/0.4 ML SYRINGE SC SCH (18:10)
[2017-02-02] MEDS: Estradiol 1 MG TAB PO SCH (22:11)
[2017-02-02] MEDS: Acetaminophen 325 MG TAB PO PRN (22:12)
[2017-02-02] MEDS: Latanoprost 0.005% Ophth Soln 2.5 ml Bottle EA EYE SCH (22:22)
[2017-02-03 05:11] LABS: Hemoglobin 9.9 g/dL (12.0-16.0); Platelet Count 207 thou/uL (130-400)
[2017-02-03 05:25] LABS: Calc. Creatinine Clearance 80 mL/min (70-130); Estimated GFR-MDRD Greater than 90
[2017-02-03] MEDS: traMADol HCl 50 MG TAB PO SCH ×3 (06:01→21:32)
[2017-02-03] MEDS: Mometasone/Formoterol 60 PUFF AER INH SCH ×2 (06:02→21:33)
[2017-02-03] MEDS: Meropenem 500 MG in Sodium Chloride 0.9% 100 ML IVPB SCH ×6 (06:02→21:30)
[2017-02-03] MEDS: Docusate 100 MG CAP PO SCH ×2 (08:58→21:32)
[2017-02-03] MEDS: Lisinopril 5 MG TAB PO SCH (08:58)
[2017-02-03] MEDS: CYCLOSPORINE OP SCH (08:58)
[2017-02-03] MEDS: Clopidogrel Bisulfate 75 MG TAB PO SCH (08:58)
[2017-02-03] MEDS: Citalopram Hydrobromide 10 MG TAB PO SCH (08:58)
[2017-02-03] MEDS: Furosemide 40 MG TAB PO SCH (08:58)
[2017-02-03] MEDS: Vancomycin HCl 750 MG in Sodium Chloride 0.9% 250 ML 250 ML IVPB SCH ×2 (08:59→21:31)
[2017-02-03] MEDS: Megestrol Acetate 800 MG/20 ML UDCUP PO SCH (08:59)
[2017-02-03] MEDS: Multivitamin W/ Minerals 1 TAB PO SCH (08:59)
[2017-02-03] MEDS: Metoprolol Tartrate 50 MG TAB PO SCH ×2 (08:59→21:32)
--- NOTE | 2017-02-03 09:28 | PRG ---
DATE OF SERVICE: 02/03/[address] Deepa Cordova. SUBJECTIVE: The patient lying in bed, feels well, awake, appears to be only minimally confused. Sh e appears to still have a flat affect, but appears to be more animated. Deny any significant pain i n the supine position and did get up 2-1/2 hours yesterday with tolerable pain. Eating well with go od bowel movements. OBJECTIVE: Shows her wound appears to be clean with minimal drainage. Lungs are clear. Cardiac ex amination showed regular rhythm. Temperature 98.4, pulse 92, respirations 19, O2 sats 97%, blood pr essure 112/61. Abdomen is soft and nontender. Hemoglobin 9.9, hematocrit 30.9, platelet count 207. ASSESSMENT: 1. Resolving Corynebacterium infection of spinal hardware, appears to be improving with decreased p ain, minimal drainage. 2. Hypertension, controlled to goal 3. Depression, appears to be improving. 4. Cognitive dysfunction, appears to be improving. 5. Deconditioning, slowly improving. PLAN: Continue PT, OT. Continue DVT and stress ulcer prophylaxis. Continue daily antibiotics. Co ntinue wound care.
[2017-02-03] MEDS: Latanoprost 0.005% Ophth Soln 2.5 ml Bottle EA EYE SCH (21:31)
[2017-02-03] MEDS: Estradiol 1 MG TAB PO SCH (21:32)
[2017-02-03] MEDS: Enoxaparin Sodium 40 MG/0.4 ML SYRINGE SC SCH (21:34)
[2017-02-04] MEDS: Mometasone/Formoterol 60 PUFF AER INH SCH ×2 (06:09→17:43)
[2017-02-04] MEDS: Meropenem 500 MG in Sodium Chloride 0.9% 100 ML IVPB SCH ×6 (06:10→21:32)
[2017-02-04] MEDS: traMADol HCl 50 MG TAB PO SCH ×3 (06:11→21:30)
[2017-02-04 08:34] LABS: Vancomycin, Trough 15.8 ug/mL
[2017-02-04 08:36] LABS: Calc. Creatinine Clearance 79 mL/min (70-130); Estimated GFR-MDRD Greater than 90
[2017-02-04] MEDS: Lisinopril 5 MG TAB PO SCH (08:42)
[2017-02-04] MEDS: Megestrol Acetate 800 MG/20 ML UDCUP PO SCH (08:42)
[2017-02-04] MEDS: Vancomycin HCl 750 MG in Sodium Chloride 0.9% 250 ML 250 ML IVPB SCH ×2 (08:42→20:04)
[2017-02-04] MEDS: Metoprolol Tartrate 50 MG TAB PO SCH ×2 (08:43→20:04)
[2017-02-04] MEDS: CYCLOSPORINE OP SCH (08:43)
[2017-02-04] MEDS: Docusate 100 MG CAP PO SCH ×2 (08:43→20:04)
[2017-02-04] MEDS: Furosemide 40 MG TAB PO SCH (08:43)
[2017-02-04] MEDS: Citalopram Hydrobromide 10 MG TAB PO SCH (08:43)
[2017-02-04] MEDS: Clopidogrel Bisulfate 75 MG TAB PO SCH (08:43)
[2017-02-04] MEDS: Multivitamin W/ Minerals 1 TAB PO SCH (08:43)
[2017-02-04] MEDS: HYDROcodone/Acetaminophen 10/325 mg Tablet PO PRN ×2 (10:04→17:44)
[2017-02-04] MEDS: Acetaminophen 325 MG TAB PO PRN (14:02)
[2017-02-04] MEDS: Enoxaparin Sodium 40 MG/0.4 ML SYRINGE SC SCH (17:43)
[2017-02-04] MEDS: Estradiol 1 MG TAB PO SCH (20:04)
[2017-02-04] MEDS: Latanoprost 0.005% Ophth Soln 2.5 ml Bottle EA EYE SCH (20:04)
[2017-02-04] MEDS ORDERED: Vancomycin HCl 750 MG VIAL ONE (20:15)
--- NOTE | 2017-02-04 21:25 | PRG ---
DATE OF SERVICE: 02/03/2017 SUBJECTIVE: Ms. Almonte is doing well. She is up in her bed, eating dessert. Her is also in the room. She apparently has been eating better. Her has noticed that she is pretty orien kayleigh in the daytime, but as the evening comes along she gets more confused. I explained to him that the early onset dementia . He does not want any medications, but he just wants to monitor her closely. I advised him that I will check her B12, folic acid, TSH, and RPR just to make sure we rul e out any reversible causes of dementia. OBJECTIVE: VITAL SIGNS: She is afebrile, heart rate is 86, respiration rate 18, oxygen saturation is 100%, blo od pressure 135/65. CARDIOVASCULAR: S1, S2 plus. RESPIRATORY: Normal vesicular breath sounds. ABDOMEN: Soft, nontender, bowel sounds heard in all quadrants. EXTREMITIES: Without cyanosis or clubbing. LABORATORY DATA: Her H\T\H is 9.9 and 30.9. Her sed rate was 59. CRP was 1.17. IMPRESSION: 1. Dehiscence of her surgical incision with possible corynebacterium infection requiring long-term antibiotics. 2. Coronary artery disease without angina. 3. Improving deconditioning. 4. Possible early dementia. 5. Stable anemia. 6. Dyslipidemia and depression. PLAN: 1. Continue current medications. 2. IV antibiotics. 3. Nutritional support. 4. Deep venous thrombosis and stress ulcer prophylaxis. 5. Decubitus precautions. 6. Monitor cognitive status.
[2017-02-05 05:06] LABS: Hemoglobin 10.1 g/dL (12.0-16.0); Platelet Count 235 thou/uL (130-400)
[2017-02-05 05:24] LABS: Calc. Creatinine Clearance 83 mL/min (70-130); Estimated GFR-MDRD Greater than 90
[2017-02-05] MEDS: Mometasone/Formoterol 60 PUFF AER INH SCH ×2 (05:57→17:42)
[2017-02-05] MEDS: Meropenem 500 MG in Sodium Chloride 0.9% 100 ML IVPB SCH ×6 (05:58→21:36)
[2017-02-05] MEDS: traMADol HCl 50 MG TAB PO SCH ×3 (05:59→21:34)
[2017-02-05] MEDS: Vancomycin HCl 750 MG in Sodium Chloride 0.9% 250 ML 250 ML IVPB SCH ×2 (08:15→21:35)
[2017-02-05] MEDS: HYDROcodone/Acetaminophen 10/325 mg Tablet PO PRN (08:16)
[2017-02-05] MEDS: Megestrol Acetate 800 MG/20 ML UDCUP PO SCH (08:17)
[2017-02-05] MEDS: Docusate 100 MG CAP PO SCH ×2 (08:17→21:34)
[2017-02-05] MEDS: Furosemide 40 MG TAB PO SCH (08:17)
[2017-02-05] MEDS: Metoprolol Tartrate 50 MG TAB PO SCH ×2 (08:17→21:34)
[2017-02-05] MEDS: Lisinopril 5 MG TAB PO SCH (08:17)
[2017-02-05] MEDS: Clopidogrel Bisulfate 75 MG TAB PO SCH (08:17)
[2017-02-05] MEDS: Multivitamin W/ Minerals 1 TAB PO SCH (08:17)
[2017-02-05] MEDS: Citalopram Hydrobromide 10 MG TAB PO SCH (08:17)
[2017-02-05] MEDS: CYCLOSPORINE OP SCH ×2 (08:18→09:50)
[2017-02-05] MEDS: Enoxaparin Sodium 40 MG/0.4 ML SYRINGE SC SCH (17:42)
[2017-02-05] MEDS: Latanoprost 0.005% Ophth Soln 2.5 ml Bottle EA EYE SCH (21:33)
[2017-02-05] MEDS: Estradiol 1 MG TAB PO SCH (21:34)
[2017-02-06 05:25] LABS: Calc. Creatinine Clearance 82 mL/min (70-130); Estimated GFR-MDRD Greater than 90
[2017-02-06] MEDS: Meropenem 500 MG in Sodium Chloride 0.9% 100 ML IVPB SCH ×6 (05:43→22:01)
[2017-02-06] MEDS: Mometasone/Formoterol 60 PUFF AER INH SCH ×2 (05:43→18:00)
[2017-02-06] MEDS: traMADol HCl 50 MG TAB PO SCH ×3 (05:44→22:01)
[2017-02-06] MEDS: Citalopram Hydrobromide 10 MG TAB PO SCH (08:37)
[2017-02-06] MEDS: Clopidogrel Bisulfate 75 MG TAB PO SCH (08:37)
[2017-02-06] MEDS: Megestrol Acetate 800 MG/20 ML UDCUP PO SCH (08:37)
[2017-02-06] MEDS: Metoprolol Tartrate 50 MG TAB PO SCH ×2 (08:37→21:57)
[2017-02-06] MEDS: Furosemide 40 MG TAB PO SCH (08:37)
[2017-02-06] MEDS: Docusate 100 MG CAP PO SCH ×2 (08:37→21:56)
[2017-02-06] MEDS: Lisinopril 5 MG TAB PO SCH (08:37)
[2017-02-06] MEDS: Multivitamin W/ Minerals 1 TAB PO SCH (08:38)
[2017-02-06] MEDS: Vancomycin HCl 750 MG in Sodium Chloride 0.9% 250 ML 250 ML IVPB SCH ×2 (08:39→21:59)
[2017-02-06] MEDS: cycloSPORINE 0.05% Ophthalmic Droperette EA EYE SCH (08:39)
[2017-02-06 13:40] LABS: Free T4 (Free Thyroxine) 0.77 ng/dL (0.70-1.48)
[2017-02-06] MEDS: Enoxaparin Sodium 40 MG/0.4 ML SYRINGE SC SCH (18:00)
[2017-02-06 18:30] LABS: Folate (Folic Acid) 15.2 ng/mL (7.0-31.4)
[2017-02-06] MEDS: Estradiol 1 MG TAB PO SCH (21:56)
[2017-02-06] MEDS: Latanoprost 0.005% Ophth Soln 2.5 ml Bottle EA EYE SCH (21:56)
[2017-02-06] MEDS: HYDROcodone/Acetaminophen 10/325 mg Tablet PO PRN (23:48)
[2017-02-07] MEDS: Acetaminophen 325 MG TAB PO PRN (06:12)
[2017-02-07] MEDS: Meropenem 500 MG in Sodium Chloride 0.9% 100 ML IVPB SCH ×6 (06:12→22:00)
[2017-02-07] MEDS: traMADol HCl 50 MG TAB PO SCH ×3 (06:13→22:01)
[2017-02-07] MEDS: Mometasone/Formoterol 60 PUFF AER INH SCH ×2 (06:22→18:13)
[2017-02-07 08:37] LABS: Hemoglobin 10.1 g/dL (12.0-16.0); Platelet Count 260 thou/uL (130-400); Vancomycin, Trough 13.8 ug/mL
[2017-02-07 08:47] LABS: Calc. Creatinine Clearance 87 mL/min (70-130); Estimated GFR-MDRD Greater than 90
[2017-02-07] MEDS: Clopidogrel Bisulfate 75 MG TAB PO SCH (08:51)
[2017-02-07] MEDS: Citalopram Hydrobromide 10 MG TAB PO SCH (08:51)
[2017-02-07] MEDS: Docusate 100 MG CAP PO SCH ×2 (08:51→20:37)
[2017-02-07] MEDS: Furosemide 40 MG TAB PO SCH (08:51)
[2017-02-07] MEDS: Metoprolol Tartrate 50 MG TAB PO SCH ×2 (08:52→20:37)
[2017-02-07] MEDS: Saccharomyces boulardii 250 MG CAP PO SCH (08:52)
[2017-02-07] MEDS: Megestrol Acetate 800 MG/20 ML UDCUP PO SCH (08:52)
[2017-02-07] MEDS: Multivitamin W/ Minerals 1 TAB PO SCH (08:52)
[2017-02-07] MEDS: cycloSPORINE 0.05% Ophthalmic Droperette EA EYE SCH (08:54)
[2017-02-07] MEDS: Lisinopril 5 MG TAB PO SCH (09:01)
[2017-02-07] MEDS: Vancomycin HCl 1 GM in Sodium Chloride 0.9% 250 ML 250 ML IVPB SCH ×2 (09:06→20:38)
[2017-02-07] MEDS: Enoxaparin Sodium 40 MG/0.4 ML SYRINGE SC SCH (18:14)
[2017-02-07] MEDS: Estradiol 1 MG TAB PO SCH (20:37)
[2017-02-07] MEDS: Latanoprost 0.005% Ophth Soln 2.5 ml Bottle EA EYE SCH (20:41)
[2017-02-08] MEDS: Meropenem 500 MG in Sodium Chloride 0.9% 100 ML IVPB SCH ×6 (05:42→21:30)
[2017-02-08] MEDS: traMADol HCl 50 MG TAB PO SCH ×3 (05:44→21:00)
[2017-02-08] MEDS: Mometasone/Formoterol 60 PUFF AER INH SCH ×2 (05:47→18:37)
[2017-02-08 06:06] LABS: ALT (SGPT) 20 U/L (8-55); AST (SGOT) 18 U/L (5-34); Albumin 3.3 g/dL (3.4-4.8); Alkaline Phosphatase 83 U/L (40-150); Anion Gap 14 mmol/L (10-20); BUN (Urea Nitrogen) 24 mg/dL (9.8-20.1); Bilirubin, Total 0.3 mg/dL (0.2-1.2); Calc. Creatinine Clearance 82 mL/min (70-130); Calcium 9.7 mg/dL (7.8-10.44); Carbon Dioxide 22 mmol/L (23-31); Chloride 105 mmol/L (98-107); Estimated GFR-MDRD Greater than 90; Globulin 2.7 g/dL (2.4-3.5); Glucose 90 mg/dL (80-115); Potassium 3.9 mmol/L (3.5-5.1); Sodium 137 mmol/L (136-145)
[2017-02-08 06:32] LABS: MDiff Complete? YES; Mean Corpuscular HGB CONC 32.9 g/dL (32.0-36.0); Mean Corpuscular Hemoglobin 28.2 pg (27.0-31.0); Mean Corpuscular Volume 85.8 fl (81.0-99.0); Platelet Count 269 thou/uL (130-400); RBC Distribution Width 16.5 % (11.5-14.5); Red Blood Cell (RBC) Count 3.56 mill/uL (4.20-5.40); White Blood Cell (WBC) Count 7.7 thou/uL (4.8-10.8)
[2017-02-08 06:33] LABS: Anisocytosis SLIGHT = 6-15 cells (100X) (0-5/hpf); Band 1 % (5-11); Eosinophils 6 % (0-10); Lymphocytes 30 % (21-51); Monocytes 20 % (0-10); Neutrophil 43 % (42-75); Ovalocytes SLIGHT = 2-5 cells (100X) (0-1/hpf); PLT Morphology Comment Appears Adequate
[2017-02-08] MEDS: Megestrol Acetate 800 MG/20 ML UDCUP PO SCH (09:50)
[2017-02-08] MEDS: Multivitamin W/ Minerals 1 TAB PO SCH (09:51)
[2017-02-08] MEDS: Docusate 100 MG CAP PO SCH ×2 (09:51→20:50)
[2017-02-08] MEDS: Saccharomyces boulardii 250 MG CAP PO SCH (09:51)
[2017-02-08] MEDS: Clopidogrel Bisulfate 75 MG TAB PO SCH (09:51)
[2017-02-08] MEDS: Metoprolol Tartrate 50 MG TAB PO SCH ×2 (09:51→20:52)
[2017-02-08] MEDS: Citalopram Hydrobromide 10 MG TAB PO SCH (09:51)
[2017-02-08] MEDS: Acetaminophen 325 MG TAB PO PRN (09:51)
[2017-02-08] MEDS: Lisinopril 5 MG TAB PO SCH (09:51)
[2017-02-08] MEDS: Furosemide 40 MG TAB PO SCH (09:51)
[2017-02-08] MEDS: cycloSPORINE 0.05% Ophthalmic Droperette EA EYE SCH (09:52)
[2017-02-08] MEDS: Vancomycin HCl 1 GM in Sodium Chloride 0.9% 250 ML 250 ML IVPB SCH ×2 (09:55→20:48)
[2017-02-08] MEDS: Enoxaparin Sodium 40 MG/0.4 ML SYRINGE SC SCH (18:37)
[2017-02-08 20:42] LABS: Vancomycin, Trough 18.4 ug/mL
[2017-02-08] MEDS: Estradiol 1 MG TAB PO SCH (20:50)
[2017-02-08] MEDS: Latanoprost 0.005% Ophth Soln 2.5 ml Bottle EA EYE SCH (20:51)
[2017-02-09] MEDS: Meropenem 500 MG in Sodium Chloride 0.9% 100 ML IVPB SCH ×6 (05:39→22:01)
[2017-02-09 05:40] LABS: Hemoglobin 10.4 g/dL (12.0-16.0); Platelet Count 274 thou/uL (130-400)
[2017-02-09] MEDS: traMADol HCl 50 MG TAB PO SCH ×4 (05:40→21:17)
[2017-02-09] MEDS: Mometasone/Formoterol 60 PUFF AER INH SCH ×2 (05:41→19:05)
[2017-02-09 05:46] LABS: Calc. Creatinine Clearance 78 mL/min (70-130); Estimated GFR-MDRD Greater than 90
[2017-02-09] MEDS: Multivitamin W/ Minerals 1 TAB PO SCH (08:30)
[2017-02-09] MEDS: Docusate 100 MG CAP PO SCH ×3 (08:30→21:16)
[2017-02-09] MEDS: Clopidogrel Bisulfate 75 MG TAB PO SCH (08:30)
[2017-02-09] MEDS: Furosemide 40 MG TAB PO SCH (08:30)
[2017-02-09] MEDS: Megestrol Acetate 400 MG/10 ML UDCUP PO SCH (08:30)
[2017-02-09] MEDS: Saccharomyces boulardii 250 MG CAP PO SCH (08:30)
[2017-02-09] MEDS: Metoprolol Tartrate 50 MG TAB PO SCH ×3 (08:31→21:18)
[2017-02-09] MEDS: Lisinopril 5 MG TAB PO SCH (08:31)
[2017-02-09] MEDS: Citalopram Hydrobromide 10 MG TAB PO SCH (08:31)
[2017-02-09] MEDS: cycloSPORINE 0.05% Ophthalmic Droperette EA EYE SCH (09:20)
[2017-02-09] MEDS: Vancomycin HCl 1 GM in Sodium Chloride 0.9% 250 ML 250 ML IVPB SCH ×2 (09:22→20:34)
[2017-02-09] MEDS: Acetaminophen 325 MG TAB PO PRN (12:17)
[2017-02-09] MEDS: Enoxaparin Sodium 40 MG/0.4 ML SYRINGE SC SCH (18:55)
[2017-02-09] MEDS: Estradiol 1 MG TAB PO SCH ×2 (20:36→21:18)
[2017-02-09] MEDS: Latanoprost 0.005% Ophth Soln 2.5 ml Bottle EA EYE SCH (20:36)
[2017-02-10] MEDS: Meropenem 500 MG in Sodium Chloride 0.9% 100 ML IVPB SCH ×6 (05:54→21:07)
[2017-02-10] MEDS: traMADol HCl 50 MG TAB PO SCH ×3 (05:55→21:06)
[2017-02-10] MEDS: Mometasone/Formoterol 60 PUFF AER INH SCH ×2 (05:57→18:16)
[2017-02-10 08:16] LABS: Calc. Creatinine Clearance 80 mL/min (70-130); Estimated GFR-MDRD Greater than 90
[2017-02-10] MEDS: Megestrol Acetate 400 MG/10 ML UDCUP PO SCH (09:09)
[2017-02-10] MEDS: Clopidogrel Bisulfate 75 MG TAB PO SCH (09:09)
[2017-02-10] MEDS: Lisinopril 5 MG TAB PO SCH (09:09)
[2017-02-10] MEDS: Metoprolol Tartrate 50 MG TAB PO SCH ×2 (09:10→21:05)
[2017-02-10] MEDS: Docusate 100 MG CAP PO SCH ×2 (09:10→21:05)
[2017-02-10] MEDS: Citalopram Hydrobromide 10 MG TAB PO SCH (09:10)
[2017-02-10] MEDS: cycloSPORINE 0.05% Ophthalmic Droperette EA EYE SCH (09:10)
[2017-02-10] MEDS: Multivitamin W/ Minerals 1 TAB PO SCH (09:10)
[2017-02-10] MEDS: Saccharomyces boulardii 250 MG CAP PO SCH (09:10)
[2017-02-10] MEDS: Furosemide 40 MG TAB PO SCH (09:10)
[2017-02-10] MEDS: Vancomycin HCl 1 GM in Sodium Chloride 0.9% 250 ML 250 ML IVPB SCH ×2 (09:11→21:08)
[2017-02-10] MEDS: Acetaminophen 325 MG TAB PO PRN ×2 (14:55→21:05)
[2017-02-10] MEDS: Enoxaparin Sodium 40 MG/0.4 ML SYRINGE SC SCH (17:58)
[2017-02-10] MEDS: Estradiol 1 MG TAB PO SCH (21:06)
[2017-02-10] MEDS: Latanoprost 0.005% Ophth Soln 2.5 ml Bottle EA EYE SCH (23:20)
[2017-02-11] MEDS: traMADol HCl 50 MG TAB PO SCH ×3 (05:27→21:36)
[2017-02-11] MEDS: Meropenem 500 MG in Sodium Chloride 0.9% 100 ML IVPB SCH ×6 (05:28→21:32)
[2017-02-11 08:04] LABS: Hemoglobin 11.2 g/dL (12.0-16.0); Platelet Count 305 thou/uL (130-400)
[2017-02-11 08:10] LABS: Vancomycin, Trough 17.2 ug/mL
[2017-02-11 08:17] LABS: Calc. Creatinine Clearance 76 mL/min (70-130); Estimated GFR-MDRD Greater than 90
[2017-02-11] MEDS: Docusate 100 MG CAP PO SCH ×2 (08:38→21:34)
[2017-02-11] MEDS: Lisinopril 5 MG TAB PO SCH (08:38)
[2017-02-11] MEDS: Mometasone/Formoterol 60 PUFF AER INH SCH ×2 (08:39→18:14)
[2017-02-11] MEDS: Furosemide 40 MG TAB PO SCH (08:39)
[2017-02-11] MEDS: Metoprolol Tartrate 50 MG TAB PO SCH ×2 (08:39→21:35)
[2017-02-11] MEDS: Multivitamin W/ Minerals 1 TAB PO SCH (08:39)
[2017-02-11] MEDS: Saccharomyces boulardii 250 MG CAP PO SCH (08:39)
[2017-02-11] MEDS: Megestrol Acetate 400 MG/10 ML UDCUP PO SCH (08:39)
[2017-02-11] MEDS: Clopidogrel Bisulfate 75 MG TAB PO SCH (08:39)
[2017-02-11] MEDS: Citalopram Hydrobromide 10 MG TAB PO SCH (08:39)
[2017-02-11] MEDS: cycloSPORINE 0.05% Ophthalmic Droperette EA EYE SCH (08:40)
[2017-02-11] MEDS: Vancomycin HCl 1 GM in Sodium Chloride 0.9% 250 ML 250 ML IVPB SCH ×2 (08:41→21:34)
[2017-02-11] MEDS: Enoxaparin Sodium 40 MG/0.4 ML SYRINGE SC SCH (18:14)
[2017-02-11] MEDS: Estradiol 1 MG TAB PO SCH (21:35)
[2017-02-11] MEDS: Latanoprost 0.005% Ophth Soln 2.5 ml Bottle EA EYE SCH (21:36)
[2017-02-12 05:39] LABS: Calc. Creatinine Clearance 76 mL/min (70-130); Estimated GFR-MDRD Greater than 90
[2017-02-12] MEDS: Meropenem 500 MG in Sodium Chloride 0.9% 100 ML IVPB SCH ×6 (05:54→22:24)
[2017-02-12] MEDS: Mometasone/Formoterol 60 PUFF AER INH SCH ×2 (05:55→18:03)
[2017-02-12] MEDS: traMADol HCl 50 MG TAB PO SCH ×3 (05:57→22:24)
[2017-02-12] MEDS: Furosemide 40 MG TAB PO SCH (09:04)
[2017-02-12] MEDS: Lisinopril 5 MG TAB PO SCH (09:04)
[2017-02-12] MEDS: Docusate 100 MG CAP PO SCH ×2 (09:04→20:39)
[2017-02-12] MEDS: Clopidogrel Bisulfate 75 MG TAB PO SCH (09:04)
[2017-02-12] MEDS: Citalopram Hydrobromide 10 MG TAB PO SCH (09:04)
[2017-02-12] MEDS: Metoprolol Tartrate 50 MG TAB PO SCH ×2 (09:05→20:39)
[2017-02-12] MEDS: cycloSPORINE 0.05% Ophthalmic Droperette EA EYE SCH (09:05)
[2017-02-12] MEDS: Multivitamin W/ Minerals 1 TAB PO SCH (09:05)
[2017-02-12] MEDS: Megestrol Acetate 400 MG/10 ML UDCUP PO SCH (09:05)
[2017-02-12] MEDS: Vancomycin HCl 1 GM in Sodium Chloride 0.9% 250 ML 250 ML IVPB SCH ×2 (09:06→20:38)
[2017-02-12] MEDS: Saccharomyces boulardii 250 MG CAP PO SCH (09:06)
[2017-02-12] MEDS: Enoxaparin Sodium 40 MG/0.4 ML SYRINGE SC SCH (18:04)
[2017-02-12] MEDS: Estradiol 1 MG TAB PO SCH (20:39)
[2017-02-12] MEDS: Latanoprost 0.005% Ophth Soln 2.5 ml Bottle EA EYE SCH (20:41)
[2017-02-13] MEDS: traMADol HCl 50 MG TAB PO SCH (05:49)
[2017-02-13] MEDS: Meropenem 500 MG in Sodium Chloride 0.9% 100 ML IVPB SCH ×6 (05:50→23:00)
[2017-02-13] MEDS: Mometasone/Formoterol 60 PUFF AER INH SCH ×2 (06:34→18:27)
[2017-02-13 08:21] LABS: Hemoglobin 10.5 g/dL (12.0-16.0); Platelet Count 272 thou/uL (130-400)
[2017-02-13 08:31] LABS: Vancomycin, Trough 18.4 ug/mL
[2017-02-13 08:33] LABS: Calc. Creatinine Clearance 89 mL/min (70-130); Estimated GFR-MDRD Greater than 90
[2017-02-13] MEDS: Clopidogrel Bisulfate 75 MG TAB PO SCH (09:08)
[2017-02-13] MEDS: Citalopram Hydrobromide 10 MG TAB PO SCH (09:08)
[2017-02-13] MEDS: Docusate 100 MG CAP PO SCH ×2 (09:08→20:56)
[2017-02-13] MEDS: Multivitamin W/ Minerals 1 TAB PO SCH (09:08)
[2017-02-13] MEDS: Furosemide 40 MG TAB PO SCH (09:08)
[2017-02-13] MEDS: Lisinopril 5 MG TAB PO SCH (09:08)
[2017-02-13] MEDS: Metoprolol Tartrate 50 MG TAB PO SCH ×2 (09:08→21:07)
[2017-02-13] MEDS: Saccharomyces boulardii 250 MG CAP PO SCH (09:08)
[2017-02-13] MEDS: cycloSPORINE 0.05% Ophthalmic Droperette EA EYE SCH (09:09)
[2017-02-13] MEDS: Megestrol Acetate 400 MG/10 ML UDCUP PO SCH (09:09)
[2017-02-13] MEDS: Vancomycin HCl 1 GM in Sodium Chloride 0.9% 250 ML 250 ML IVPB SCH ×2 (09:55→20:58)
[2017-02-13] MEDS: Acetaminophen 325 MG TAB PO PRN (14:26)
[2017-02-13] MEDS: traMADol HCl 50 MG TAB PO PRN (14:27)
[2017-02-13] MEDS: Enoxaparin Sodium 40 MG/0.4 ML SYRINGE SC SCH (18:24)
[2017-02-13] MEDS: Latanoprost 0.005% Ophth Soln 2.5 ml Bottle EA EYE SCH (20:56)
[2017-02-13] MEDS: Meloxicam 7.5 MG TAB PO SCH (20:56)
[2017-02-13] MEDS: Estradiol 1 MG TAB PO SCH (20:56)
[2017-02-14] MEDS: Meropenem 500 MG in Sodium Chloride 0.9% 100 ML IVPB SCH ×6 (05:16→21:06)
[2017-02-14] MEDS: Mometasone/Formoterol 60 PUFF AER INH SCH ×2 (05:18→17:49)
[2017-02-14 05:26] LABS: Calc. Creatinine Clearance 75 mL/min (70-130); Estimated GFR-MDRD Greater than 90
[2017-02-14] MEDS: Meloxicam 7.5 MG TAB PO SCH ×2 (09:06→21:05)
[2017-02-14] MEDS: Docusate 100 MG CAP PO SCH ×2 (09:06→21:05)
[2017-02-14] MEDS: traMADol HCl 50 MG TAB PO PRN ×3 (09:06→21:09)
[2017-02-14] MEDS: Clopidogrel Bisulfate 75 MG TAB PO SCH (09:06)
[2017-02-14] MEDS: Saccharomyces boulardii 250 MG CAP PO SCH (09:06)
[2017-02-14] MEDS: Vancomycin HCl 1 GM in Sodium Chloride 0.9% 250 ML 250 ML IVPB SCH ×2 (09:07→21:06)
[2017-02-14] MEDS: Metoprolol Tartrate 50 MG TAB PO SCH ×2 (09:09→21:05)
[2017-02-14] MEDS: Furosemide 40 MG TAB PO SCH (09:09)
[2017-02-14] MEDS: Multivitamin W/ Minerals 1 TAB PO SCH (09:09)
[2017-02-14] MEDS: Citalopram Hydrobromide 10 MG TAB PO SCH (09:10)
[2017-02-14] MEDS: Megestrol Acetate 400 MG/10 ML UDCUP PO SCH (09:10)
[2017-02-14] MEDS: Lisinopril 5 MG TAB PO SCH (09:10)
[2017-02-14] MEDS: cycloSPORINE 0.05% Ophthalmic Droperette EA EYE SCH (09:21)
[2017-02-14] MEDS: Enoxaparin Sodium 40 MG/0.4 ML SYRINGE SC SCH (17:50)
[2017-02-14] MEDS: Estradiol 1 MG TAB PO SCH (21:05)
[2017-02-14] MEDS: Latanoprost 0.005% Ophth Soln 2.5 ml Bottle EA EYE SCH (21:10)
[2017-02-15 05:28] LABS: Band 3 % (5-11); Eosinophils 1 % (0-10); Hemoglobin 10.9 g/dL (12.0-16.0); Lymphocytes 26 % (21-51); MDiff Complete? YES; Mean Corpuscular HGB CONC 32.8 g/dL (32.0-36.0); Mean Corpuscular Volume 85.4 fl (81.0-99.0); Mean Platelet Volume 7.3 fL (7.4-10.4); Monocytes 15 % (0-10); Neutrophil 53 % (42-75); PLT Morphology Comment Appears Adequate; Platelet Count 271 thou/uL (130-400); RBC Distribution Width 16.3 % (11.5-14.5); RBC Morphology Normal; Reactive Lymphocytes 1 % (0-10); Red Blood Cell (RBC) Count 3.88 mill/uL (4.20-5.40)
[2017-02-15 05:37] LABS: ALT (SGPT) 23 U/L (8-55); AST (SGOT) 21 U/L (5-34); Albumin 3.3 g/dL (3.4-4.8); Alkaline Phosphatase 78 U/L (40-150); Anion Gap 14 mmol/L (10-20); BUN (Urea Nitrogen) 25 mg/dL (9.8-20.1); Bilirubin, Total 0.4 mg/dL (0.2-1.2); Calc. Creatinine Clearance 77 mL/min (70-130); Calcium 9.9 mg/dL (7.8-10.44); Carbon Dioxide 22 mmol/L (23-31); Chloride 106 mmol/L (98-107); Estimated GFR-MDRD Greater than 90; Globulin 2.6 g/dL (2.4-3.5); Glucose 93 mg/dL (80-115); Potassium 4.1 mmol/L (3.5-5.1); Protein, Total 5.9 g/dL (6.0-8.3); Sodium 138 mmol/L (136-145)
[2017-02-15] MEDS: Meropenem 500 MG in Sodium Chloride 0.9% 100 ML IVPB SCH ×6 (06:13→21:08)
[2017-02-15] MEDS: Mometasone/Formoterol 60 PUFF AER INH SCH ×2 (06:13→18:58)
[2017-02-15] MEDS: Vancomycin HCl 1 GM in Sodium Chloride 0.9% 250 ML 250 ML IVPB SCH ×2 (08:48→21:08)
[2017-02-15] MEDS: Multivitamin W/ Minerals 1 TAB PO SCH (08:49)
[2017-02-15] MEDS: Meloxicam 7.5 MG TAB PO SCH ×2 (08:49→21:09)
[2017-02-15] MEDS: Citalopram Hydrobromide 10 MG TAB PO SCH (08:49)
[2017-02-15] MEDS: Furosemide 40 MG TAB PO SCH (08:49)
[2017-02-15] MEDS: Docusate 100 MG CAP PO SCH ×2 (08:49→21:09)
[2017-02-15] MEDS: Saccharomyces boulardii 250 MG CAP PO SCH (08:49)
[2017-02-15] MEDS: Lisinopril 5 MG TAB PO SCH (08:49)
[2017-02-15] MEDS: Metoprolol Tartrate 50 MG TAB PO SCH ×2 (08:50→21:09)
[2017-02-15] MEDS: Clopidogrel Bisulfate 75 MG TAB PO SCH (08:50)
[2017-02-15] MEDS: Megestrol Acetate 400 MG/10 ML UDCUP PO SCH (08:50)
[2017-02-15] MEDS: cycloSPORINE 0.05% Ophthalmic Droperette EA EYE SCH (08:50)
[2017-02-15] MEDS: HYDROcodone/Acetaminophen 10/325 mg Tablet PO PRN ×2 (13:51→21:05)
[2017-02-15] MEDS: traMADol HCl 50 MG TAB PO PRN (17:48)
[2017-02-15] MEDS: Acetaminophen 325 MG TAB PO PRN (17:48)
[2017-02-15] MEDS: Enoxaparin Sodium 40 MG/0.4 ML SYRINGE SC SCH (17:49)
[2017-02-15] MEDS: Latanoprost 0.005% Ophth Soln 2.5 ml Bottle EA EYE SCH (21:07)
[2017-02-15] MEDS: Estradiol 1 MG TAB PO SCH (21:09)
[2017-02-16] MEDS: Meropenem 500 MG in Sodium Chloride 0.9% 100 ML IVPB SCH ×6 (06:20→21:39)
[2017-02-16] MEDS: Mometasone/Formoterol 60 PUFF AER INH SCH ×2 (06:37→17:37)
[2017-02-16 08:16] LABS: Vancomycin, Trough 20.1 ug/mL
[2017-02-16 08:18] LABS: Calc. Creatinine Clearance 81 mL/min (70-130); Estimated GFR-MDRD Greater than 90
[2017-02-16] MEDS: Vancomycin HCl 1 GM in Sodium Chloride 0.9% 250 ML 250 ML IVPB SCH ×2 (11:46→21:35)
[2017-02-16] MEDS: Lisinopril 5 MG TAB PO SCH (11:48)
[2017-02-16] MEDS: Megestrol Acetate 400 MG/10 ML UDCUP PO SCH (11:49)
[2017-02-16] MEDS: Meloxicam 7.5 MG TAB PO SCH ×2 (11:49→21:40)
[2017-02-16] MEDS: Citalopram Hydrobromide 10 MG TAB PO SCH (11:50)
[2017-02-16] MEDS: Clopidogrel Bisulfate 75 MG TAB PO SCH (11:50)
[2017-02-16] MEDS: Docusate 100 MG CAP PO SCH ×2 (11:50→21:40)
[2017-02-16] MEDS: Metoprolol Tartrate 50 MG TAB PO SCH ×2 (11:50→21:40)
[2017-02-16] MEDS: Furosemide 40 MG TAB PO SCH (11:51)
[2017-02-16] MEDS: Saccharomyces boulardii 250 MG CAP PO SCH (11:51)
[2017-02-16] MEDS: Multivitamin W/ Minerals 1 TAB PO SCH (11:51)
[2017-02-16] MEDS: cycloSPORINE 0.05% Ophthalmic Droperette EA EYE SCH (11:52)
[2017-02-16] MEDS: Enoxaparin Sodium 40 MG/0.4 ML SYRINGE SC SCH (17:36)
[2017-02-16] MEDS: Latanoprost 0.005% Ophth Soln 2.5 ml Bottle EA EYE SCH (21:39)
[2017-02-16] MEDS: HYDROcodone/Acetaminophen 10/325 mg Tablet PO PRN (21:40)
[2017-02-16] MEDS: Estradiol 1 MG TAB PO SCH (21:40)
[2017-02-17 05:05] LABS: Hemoglobin 10.2 g/dL (12.0-16.0); Platelet Count 241 thou/uL (130-400)
[2017-02-17] MEDS: Meropenem 500 MG in Sodium Chloride 0.9% 100 ML IVPB SCH ×6 (06:02→21:42)
[2017-02-17] MEDS: Mometasone/Formoterol 60 PUFF AER INH SCH ×2 (06:03→17:45)
[2017-02-17 06:31] LABS: Calc. Creatinine Clearance 88 mL/min (70-130); Estimated GFR-MDRD Greater than 90
[2017-02-17] MEDS: Citalopram Hydrobromide 10 MG TAB PO SCH (08:55)
[2017-02-17] MEDS: Furosemide 40 MG TAB PO SCH (08:56)
[2017-02-17] MEDS: Docusate 100 MG CAP PO SCH ×2 (08:56→21:43)
[2017-02-17] MEDS: Lisinopril 5 MG TAB PO SCH (08:56)
[2017-02-17] MEDS: Clopidogrel Bisulfate 75 MG TAB PO SCH (08:56)
[2017-02-17] MEDS: Metoprolol Tartrate 50 MG TAB PO SCH ×2 (08:57→21:43)
[2017-02-17] MEDS: Megestrol Acetate 400 MG/10 ML UDCUP PO SCH (08:57)
[2017-02-17] MEDS: Meloxicam 7.5 MG TAB PO SCH ×2 (08:57→21:42)
[2017-02-17] MEDS: cycloSPORINE 0.05% Ophthalmic Droperette EA EYE SCH (08:57)
[2017-02-17] MEDS: Multivitamin W/ Minerals 1 TAB PO SCH (08:57)
[2017-02-17] MEDS: Saccharomyces boulardii 250 MG CAP PO SCH (08:58)
[2017-02-17] MEDS: Vancomycin HCl 1 GM in Sodium Chloride 0.9% 250 ML 250 ML IVPB SCH ×2 (08:58→21:38)
[2017-02-17] MEDS: traMADol HCl 50 MG TAB PO PRN ×2 (09:01→17:45)
[2017-02-17] MEDS: Acetaminophen 325 MG TAB PO PRN ×2 (09:02→17:47)
[2017-02-17] MEDS ORDERED: Sodium Chloride 0.9% 500 ML IVPB SCH (12:00)
[2017-02-17] MEDS: HYDROcodone/Acetaminophen 10/325 mg Tablet PO PRN ×2 (14:44→21:43)
[2017-02-17] MEDS: Enoxaparin Sodium 40 MG/0.4 ML SYRINGE SC SCH (17:44)
[2017-02-17] MEDS: Estradiol 1 MG TAB PO SCH (21:42)
[2017-02-17] MEDS: Latanoprost 0.005% Ophth Soln 2.5 ml Bottle EA EYE SCH (21:48)
[2017-02-18 05:29] LABS: Calc. Creatinine Clearance 83 mL/min (70-130); Estimated GFR-MDRD Greater than 90
[2017-02-18] MEDS: Mometasone/Formoterol 60 PUFF AER INH SCH ×2 (06:17→18:29)
[2017-02-18] MEDS: Meropenem 500 MG in Sodium Chloride 0.9% 100 ML IVPB SCH ×6 (06:18→22:15)
[2017-02-18] MEDS: Lisinopril 5 MG TAB PO SCH (10:22)
[2017-02-18] MEDS: Megestrol Acetate 400 MG/10 ML UDCUP PO SCH (10:23)
[2017-02-18] MEDS: Meloxicam 7.5 MG TAB PO SCH ×2 (10:23→21:09)
[2017-02-18] MEDS: Citalopram Hydrobromide 10 MG TAB PO SCH (10:23)
[2017-02-18] MEDS: Multivitamin W/ Minerals 1 TAB PO SCH (10:23)
[2017-02-18] MEDS: Docusate 100 MG CAP PO SCH ×2 (10:23→21:08)
[2017-02-18] MEDS: Clopidogrel Bisulfate 75 MG TAB PO SCH (10:23)
[2017-02-18] MEDS: Saccharomyces boulardii 250 MG CAP PO SCH (10:23)
[2017-02-18] MEDS: Furosemide 20 MG TAB PO SCH (10:23)
[2017-02-18] MEDS: Vancomycin HCl 1 GM in Sodium Chloride 0.9% 250 ML 250 ML IVPB SCH ×2 (10:24→21:09)
[2017-02-18] MEDS: Metoprolol Tartrate 50 MG TAB PO SCH ×2 (10:24→21:09)
[2017-02-18] MEDS: cycloSPORINE 0.05% Ophthalmic Droperette EA EYE SCH (10:36)
[2017-02-18] MEDS: traMADol HCl 50 MG TAB PO PRN (12:11)
[2017-02-18] MEDS: Acetaminophen 325 MG TAB PO PRN (12:11)
[2017-02-18] MEDS: Enoxaparin Sodium 40 MG/0.4 ML SYRINGE SC SCH (18:31)
[2017-02-18] MEDS: Estradiol 1 MG TAB PO SCH (21:09)
[2017-02-18] MEDS: Latanoprost 0.005% Ophth Soln 2.5 ml Bottle EA EYE SCH (21:11)
[2017-02-19] MEDS: Mometasone/Formoterol 60 PUFF AER INH SCH ×2 (05:59→17:27)
[2017-02-19] MEDS: Meropenem 500 MG in Sodium Chloride 0.9% 100 ML IVPB SCH ×6 (06:01→21:31)
[2017-02-19] MEDS: Citalopram Hydrobromide 10 MG TAB PO SCH (08:28)
[2017-02-19] MEDS: Multivitamin W/ Minerals 1 TAB PO SCH (08:28)
[2017-02-19] MEDS: Docusate 100 MG CAP PO SCH ×2 (08:28→21:28)
[2017-02-19] MEDS: Meloxicam 7.5 MG TAB PO SCH ×2 (08:28→21:28)
[2017-02-19] MEDS: Clopidogrel Bisulfate 75 MG TAB PO SCH (08:28)
[2017-02-19] MEDS: Furosemide 20 MG TAB PO SCH (08:28)
[2017-02-19] MEDS: Metoprolol Tartrate 50 MG TAB PO SCH ×2 (08:28→21:28)
[2017-02-19] MEDS: Lisinopril 5 MG TAB PO SCH (08:28)
[2017-02-19] MEDS: Vancomycin HCl 1 GM in Sodium Chloride 0.9% 250 ML 250 ML IVPB SCH ×2 (08:28→21:27)
[2017-02-19] MEDS: Megestrol Acetate 400 MG/10 ML UDCUP PO SCH (08:28)
[2017-02-19] MEDS: HYDROcodone/Acetaminophen 10/325 mg Tablet PO PRN ×2 (08:29→21:23)
[2017-02-19] MEDS: cycloSPORINE 0.05% Ophthalmic Droperette EA EYE SCH (08:30)
[2017-02-19 08:43] LABS: Hemoglobin 10.1 g/dL (12.0-16.0); Platelet Count 240 thou/uL (130-400)
[2017-02-19 08:51] LABS: Vancomycin, Trough 17.7 ug/mL
[2017-02-19 08:55] LABS: Calc. Creatinine Clearance 86 mL/min (70-130); Estimated GFR-MDRD Greater than 90
[2017-02-19] MEDS: Saccharomyces boulardii 250 MG CAP PO SCH (09:37)
[2017-02-19] MEDS: Acetaminophen 325 MG TAB PO PRN (14:20)
[2017-02-19] MEDS: Enoxaparin Sodium 40 MG/0.4 ML SYRINGE SC SCH (17:27)
[2017-02-19] MEDS: Latanoprost 0.005% Ophth Soln 2.5 ml Bottle EA EYE SCH (21:28)
[2017-02-19] MEDS: Estradiol 1 MG TAB PO SCH (21:28)
[2017-02-20 05:27] LABS: Calc. Creatinine Clearance 89 mL/min (70-130); Estimated GFR-MDRD Greater than 90
[2017-02-20] MEDS: Meropenem 500 MG in Sodium Chloride 0.9% 100 ML IVPB SCH ×2 (06:14)
[2017-02-20] MEDS: Mometasone/Formoterol 60 PUFF AER INH SCH ×2 (06:15→17:41)
[2017-02-20] MEDS: Docusate 100 MG CAP PO SCH ×2 (09:06→20:08)
[2017-02-20] MEDS: Furosemide 20 MG TAB PO SCH (09:06)
[2017-02-20] MEDS: Clopidogrel Bisulfate 75 MG TAB PO SCH (09:06)
[2017-02-20] MEDS: Citalopram Hydrobromide 10 MG TAB PO SCH (09:06)
[2017-02-20] MEDS: Meloxicam 7.5 MG TAB PO SCH ×2 (09:07→20:08)
[2017-02-20] MEDS: Lisinopril 5 MG TAB PO SCH (09:07)
[2017-02-20] MEDS: Multivitamin W/ Minerals 1 TAB PO SCH (09:09)
[2017-02-20] MEDS: Megestrol Acetate 400 MG/10 ML UDCUP PO SCH (09:09)
[2017-02-20] MEDS: Metoprolol Tartrate 50 MG TAB PO SCH ×2 (09:09→20:08)
[2017-02-20] MEDS: Saccharomyces boulardii 250 MG CAP PO SCH (09:09)
[2017-02-20] MEDS: Vancomycin HCl 1 GM in Sodium Chloride 0.9% 250 ML 250 ML IVPB SCH ×2 (09:10→20:09)
[2017-02-20] MEDS: cycloSPORINE 0.05% Ophthalmic Droperette EA EYE SCH (09:16)
[2017-02-20] MEDS: Meropenem 1 GM in Sodium Chloride 0.9% 100 ML IVPB SCH ×2 (14:20→22:21)
[2017-02-20] MEDS: Enoxaparin Sodium 40 MG/0.4 ML SYRINGE SC SCH (17:41)
[2017-02-20] MEDS: Estradiol 1 MG TAB PO SCH (20:08)
[2017-02-20] MEDS: Latanoprost 0.005% Ophth Soln 2.5 ml Bottle EA EYE SCH (20:10)
[2017-02-21] MEDS: HYDROcodone/Acetaminophen 10/325 mg Tablet PO PRN (01:28)
[2017-02-21] MEDS: Meropenem 1 GM in Sodium Chloride 0.9% 100 ML IVPB SCH ×3 (05:36→21:39)
[2017-02-21] MEDS: Mometasone/Formoterol 60 PUFF AER INH SCH ×2 (05:38→17:30)
[2017-02-21 05:54] LABS: Hemoglobin 10.7 g/dL (12.0-16.0); Platelet Count 240 thou/uL (130-400)
[2017-02-21 06:03] LABS: Calc. Creatinine Clearance 83 mL/min (70-130); Estimated GFR-MDRD Greater than 90
[2017-02-21] MEDS: Megestrol Acetate 400 MG/10 ML UDCUP PO SCH (08:57)
[2017-02-21] MEDS: Vancomycin HCl 1 GM in Sodium Chloride 0.9% 250 ML 250 ML IVPB SCH ×2 (08:57→21:39)
[2017-02-21] MEDS: Multivitamin W/ Minerals 1 TAB PO SCH (08:58)
[2017-02-21] MEDS: Docusate 100 MG CAP PO SCH ×2 (08:58→21:38)
[2017-02-21] MEDS: Clopidogrel Bisulfate 75 MG TAB PO SCH (08:58)
[2017-02-21] MEDS: Lisinopril 5 MG TAB PO SCH (08:58)
[2017-02-21] MEDS: Furosemide 20 MG TAB PO SCH (08:59)
[2017-02-21] MEDS: Citalopram Hydrobromide 10 MG TAB PO SCH (08:59)
[2017-02-21] MEDS: Metoprolol Tartrate 50 MG TAB PO SCH ×2 (08:59→21:39)
[2017-02-21] MEDS: Meloxicam 7.5 MG TAB PO SCH ×2 (08:59→21:38)
[2017-02-21] MEDS: Saccharomyces boulardii 250 MG CAP PO SCH (09:03)
[2017-02-21] MEDS: cycloSPORINE 0.05% Ophthalmic Droperette EA EYE SCH (09:04)
[2017-02-21] MEDS: Enoxaparin Sodium 40 MG/0.4 ML SYRINGE SC SCH (17:28)
[2017-02-21] MEDS: Estradiol 1 MG TAB PO SCH (21:38)
[2017-02-21] MEDS: Latanoprost 0.005% Ophth Soln 2.5 ml Bottle EA EYE SCH (21:40)
[2017-02-22] MEDS: Meropenem 1 GM in Sodium Chloride 0.9% 100 ML IVPB SCH ×3 (05:52→21:02)
[2017-02-22] MEDS: Mometasone/Formoterol 60 PUFF AER INH SCH ×2 (05:53→20:44)
[2017-02-22 08:19] LABS: Vancomycin, Trough 19.1 ug/mL
[2017-02-22 08:23] LABS: ALT (SGPT) 26 U/L (8-55); AST (SGOT) 21 U/L (5-34); Albumin 3.7 g/dL (3.4-4.8); Alkaline Phosphatase 81 U/L (40-150); Anion Gap 14 mmol/L (10-20); BUN (Urea Nitrogen) 19 mg/dL (9.8-20.1); Bilirubin, Total 0.6 mg/dL (0.2-1.2); Calc. Creatinine Clearance 76 mL/min (70-130); Carbon Dioxide 20 mmol/L (23-31); Chloride 107 mmol/L (98-107); Estimated GFR-MDRD 86; Globulin 3.1 g/dL (2.4-3.5); Glucose 96 mg/dL (80-115); Potassium 3.7 mmol/L (3.5-5.1); Protein, Total 6.8 g/dL (6.0-8.3); Sodium 137 mmol/L (136-145)
[2017-02-22] MEDS: cycloSPORINE 0.05% Ophthalmic Droperette EA EYE SCH (08:34)
[2017-02-22] MEDS: Lisinopril 5 MG TAB PO SCH (08:35)
[2017-02-22] MEDS: Furosemide 20 MG TAB PO SCH (08:35)
[2017-02-22] MEDS: Metoprolol Tartrate 50 MG TAB PO SCH ×2 (08:35→20:56)
[2017-02-22] MEDS: Docusate 100 MG CAP PO SCH ×2 (08:35→20:56)
[2017-02-22] MEDS: Clopidogrel Bisulfate 75 MG TAB PO SCH (08:35)
[2017-02-22] MEDS: Saccharomyces boulardii 250 MG CAP PO SCH (08:35)
[2017-02-22] MEDS: Citalopram Hydrobromide 10 MG TAB PO SCH (08:35)
[2017-02-22] MEDS: Meloxicam 7.5 MG TAB PO SCH ×2 (08:36→20:56)
[2017-02-22] MEDS: Multivitamin W/ Minerals 1 TAB PO SCH (08:36)
[2017-02-22] MEDS: Megestrol Acetate 400 MG/10 ML UDCUP PO SCH (08:36)
[2017-02-22] MEDS: Vancomycin HCl 1 GM in Sodium Chloride 0.9% 250 ML 250 ML IVPB SCH ×2 (08:43→21:03)
[2017-02-22 09:08] LABS: Hemoglobin 11.5 g/dL (12.0-16.0); Mean Corpuscular HGB CONC 32.3 g/dL (32.0-36.0); Mean Corpuscular Hemoglobin 27.5 pg (27.0-31.0); Mean Corpuscular Volume 85.1 fl (81.0-99.0); Mean Platelet Volume 7.8 fL (7.4-10.4); Platelet Count 264 thou/uL (130-400); RBC Distribution Width 17.3 % (11.5-14.5); Red Blood Cell (RBC) Count 4.17 mill/uL (4.20-5.40); White Blood Cell (WBC) Count 12.3 thou/uL (4.8-10.8)
[2017-02-22 09:09] LABS: Anisocytosis SLIGHT = 6-15 cells (100X) (0-5/hpf); Eosinophils 4 % (0-10); Hypersemented Neutrophil SLIGHT; Lymphocytes 25 % (21-51); MDiff Complete? YES; Monocytes 5 % (0-10); Neutrophil 66 % (42-75); PLT Morphology Comment Appears Adequate
[2017-02-22] MEDS: traMADol HCl 50 MG TAB PO PRN (17:26)
[2017-02-22] MEDS: Enoxaparin Sodium 40 MG/0.4 ML SYRINGE SC SCH (17:27)
[2017-02-22] MEDS: Estradiol 1 MG TAB PO SCH (20:56)
[2017-02-22] MEDS: Latanoprost 0.005% Ophth Soln 2.5 ml Bottle EA EYE SCH (20:57)
[2017-02-23] MEDS: Meropenem 1 GM in Sodium Chloride 0.9% 100 ML IVPB SCH ×3 (05:15→21:24)
[2017-02-23 05:51] LABS: Calc. Creatinine Clearance 86 mL/min (70-130); Estimated GFR-MDRD Greater than 90
[2017-02-23 05:52] LABS: Hemoglobin 10.3 g/dL (12.0-16.0); Platelet Count 240 thou/uL (130-400)
[2017-02-23] MEDS: Mometasone/Formoterol 60 PUFF AER INH SCH ×2 (06:05→17:25)
[2017-02-23] MEDS: Meloxicam 7.5 MG TAB PO SCH ×2 (08:46→21:24)
[2017-02-23] MEDS: Metoprolol Tartrate 50 MG TAB PO SCH ×2 (08:47→21:25)
[2017-02-23] MEDS: Clopidogrel Bisulfate 75 MG TAB PO SCH (08:47)
[2017-02-23] MEDS: Docusate 100 MG CAP PO SCH ×2 (08:47→21:25)
[2017-02-23] MEDS: Megestrol Acetate 400 MG/10 ML UDCUP PO SCH (08:47)
[2017-02-23] MEDS: Furosemide 20 MG TAB PO SCH (08:47)
[2017-02-23] MEDS: Citalopram Hydrobromide 10 MG TAB PO SCH (08:47)
[2017-02-23] MEDS: Saccharomyces boulardii 250 MG CAP PO SCH (08:47)
[2017-02-23] MEDS: Multivitamin W/ Minerals 1 TAB PO SCH (08:47)
[2017-02-23] MEDS: Vancomycin HCl 1 GM in Sodium Chloride 0.9% 250 ML 250 ML IVPB SCH ×2 (08:48→21:24)
[2017-02-23] MEDS: Lisinopril 5 MG TAB PO SCH (08:49)
[2017-02-23] MEDS: cycloSPORINE 0.05% Ophthalmic Droperette EA EYE SCH (08:50)
[2017-02-23] MEDS: Acetaminophen 325 MG TAB PO PRN (09:42)
[2017-02-23] MEDS: traMADol HCl 50 MG TAB PO PRN (09:43)
[2017-02-23] MEDS: Enoxaparin Sodium 40 MG/0.4 ML SYRINGE SC SCH (17:24)
[2017-02-23] MEDS: Estradiol 1 MG TAB PO SCH (21:24)
[2017-02-23] MEDS: Latanoprost 0.005% Ophth Soln 2.5 ml Bottle EA EYE SCH (21:25)
[2017-02-24 04:00] VITALS: BMI 25.0
[2017-02-24] MEDS: Mometasone/Formoterol 60 PUFF AER INH SCH ×2 (06:15→17:31)
[2017-02-24] MEDS: Multivitamin W/ Minerals 1 TAB PO SCH (08:30)
[2017-02-24] MEDS: Megestrol Acetate 400 MG/10 ML UDCUP PO SCH (08:30)
[2017-02-24] MEDS: Clopidogrel Bisulfate 75 MG TAB PO SCH (08:31)
[2017-02-24] MEDS: Metoprolol Tartrate 50 MG TAB PO SCH ×2 (08:31→21:32)
[2017-02-24] MEDS: Furosemide 20 MG TAB PO SCH (08:31)
[2017-02-24] MEDS: Saccharomyces boulardii 250 MG CAP PO SCH (08:31)
[2017-02-24] MEDS: Rifampin 300 MG CAP PO SCH ×2 (08:31→21:31)
[2017-02-24] MEDS: Citalopram Hydrobromide 10 MG TAB PO SCH (08:31)
[2017-02-24] MEDS: Docusate 100 MG CAP PO SCH ×2 (08:31→21:32)
[2017-02-24] MEDS: Meloxicam 7.5 MG TAB PO SCH ×2 (08:31→21:32)
[2017-02-24] MEDS: Doxycycline 100 MG CAP PO SCH ×2 (08:31→21:31)
[2017-02-24] MEDS: Lisinopril 5 MG TAB PO SCH (08:32)
[2017-02-24] MEDS: cycloSPORINE 0.05% Ophthalmic Droperette EA EYE SCH (08:32)
[2017-02-24] MEDS: Acetaminophen 325 MG TAB PO PRN (15:16)
[2017-02-24] MEDS: Enoxaparin Sodium 40 MG/0.4 ML SYRINGE SC SCH (17:31)
[2017-02-24] MEDS: Estradiol 1 MG TAB PO SCH (21:31)
[2017-02-24] MEDS: Latanoprost 0.005% Ophth Soln 2.5 ml Bottle EA EYE SCH (21:32)
[2017-02-25 05:44] LABS: Hemoglobin 10.6 g/dL (12.0-16.0); Platelet Count 262 thou/uL (130-400)
[2017-02-25] MEDS: Mometasone/Formoterol 60 PUFF AER INH SCH (05:51)
[2017-02-25 05:55] LABS: Calc. Creatinine Clearance 85 mL/min (70-130); Estimated GFR-MDRD Greater than 90
[2017-02-25] MEDS: traMADol HCl 50 MG TAB PO PRN (08:17)
[2017-02-25] MEDS: Multivitamin W/ Minerals 1 TAB PO SCH (08:19)
[2017-02-25] MEDS: Furosemide 20 MG TAB PO SCH (08:20)
[2017-02-25] MEDS: Lisinopril 5 MG TAB PO SCH (08:20)
[2017-02-25] MEDS: Doxycycline 100 MG CAP PO SCH (08:21)
[2017-02-25] MEDS: Citalopram Hydrobromide 10 MG TAB PO SCH (08:21)
[2017-02-25] MEDS: Saccharomyces boulardii 250 MG CAP PO SCH (08:21)
[2017-02-25] MEDS: Clopidogrel Bisulfate 75 MG TAB PO SCH (08:21)
[2017-02-25] MEDS: Metoprolol Tartrate 50 MG TAB PO SCH (08:22)
[2017-02-25] MEDS: Docusate 100 MG CAP PO SCH (08:22)
[2017-02-25] MEDS: Meloxicam 7.5 MG TAB PO SCH (08:22)
[2017-02-25] MEDS: Megestrol Acetate 400 MG/10 ML UDCUP PO SCH (08:22)
[2017-02-25] MEDS: cycloSPORINE 0.05% Ophthalmic Droperette EA EYE SCH (08:23)
[2017-02-25 08:24] VITALS: BP 168/86
[2017-02-25 09:17] VITALS: TEMP 98.8
[2017-02-25] MEDS: Rifampin 300 MG CAP PO SCH (09:47)
== END 2017-02-25 14:00 | disposition home health service (06) | DRG 920 ==
LOC: NAV ACUTE 16:46
PROVIDERS: ADMIT Internal Medicine; ATTEND Internal Medicine
DX: T81.32XA Disruption of internal operation (surgical) wound, not elsewhere classified, initial encounter (principal); T81.4XXA Infection following a procedure, initial encounter; E46 Unspecified protein-calorie malnutrition; I48.0 Paroxysmal atrial fibrillation; F03.90 Unspecified dementia, unspecified severity, without behavioral disturbance, psychotic disturbance, mood disturbance, and anxiety; B96.89 Other specified bacterial agents as the cause of diseases classified elsewhere; I10 Essential (primary) hypertension; S01.01XA Laceration without foreign body of scalp, initial encounter; F32.9 Major depressive disorder, single episode, unspecified; D64.9 Anemia, unspecified; W01.10XA Fall on same level from slipping, tripping and stumbling with subsequent striking against unspecified object, initial encounter; Y92.230 Patient room in hospital as the place of occurrence of the external cause; Z79.2 Long term (current) use of antibiotics; I25.10 Atherosclerotic heart disease of native coronary artery without angina pectoris; R33.9 Retention of urine, unspecified; K21.9 Gastro-esophageal reflux disease without esophagitis; M19.90 Unspecified osteoarthritis, unspecified site; E03.9 Hypothyroidism, unspecified; E78.5 Hyperlipidemia, unspecified; Z95.5 Presence of coronary angioplasty implant and graft; Z98.1 Arthrodesis status; F09 Unspecified mental disorder due to known physiological condition; F41.9 Anxiety disorder, unspecified; Z48.89 Encounter for other specified surgical aftercare; Z68.23 Body mass index [BMI] 23.0-23.9, adult
CPT/HCPCS: 36415; 80048; 80053; 80202; 82565; 82607; 82746; 84439; 84443; 84481; 85014; 85018; 85025; 85049; 85652; 86140; 86592; 87070; 87086; 87205; 94664; 97602; A4216; G9162-GN-CL; G9163-GN-CJ; J1650; J2185; J3370; J7050

== ENCOUNTER 2017-02-16 09:32 | Emergency (ER) | payer MEDICARE ==
[2017-02-16] MEDS ORDERED: Lidocaine 1% 20 ML MDV ONE (09:53)
[2017-02-16] MEDS ORDERED: Acetaminophen 325 MG TAB ONE (10:42)
[2017-02-16] MEDS ORDERED: traMADol HCl 50 MG TAB ONE (10:42)
--- NOTE | 2017-02-16 10:50 | CT ---
CT OF THE BRAIN WITHOUT CONTRAST: Date: 02/16/17 COMPARISON: 01/19/17. HISTORY: Fell from weakness when getting out of bed to go to the restroom. TECHNIQUE: Multiple contiguous axial images were obtained in a CT of the brain without contrast. Sagittal and c oronal reformats were performed. FINDINGS: There are scattered hypodensities in the subcortical and periventricular white matter, likely second ronak to small vessel ischemic disease. No large confluent infarction is seen. There is no evidence of hydrocephalus, intracranial hemorrhage, or extra-axial fluid collection. The calvarium is unremarkable. Surgical erika are seen in the scalp. The paranasal sinuses and mas toid air cells are well aerated. IMPRESSION: No evidence of acute intracranial abnormality. POS: [facility]
== END 2017-02-16 10:51 | disposition critical access hospital (66) ==
LOC: NAV ERS 09:32
DX: S09.90XA Unspecified injury of head, initial encounter (principal); S01.01XA Laceration without foreign body of scalp, initial encounter; I10 Essential (primary) hypertension; I25.111 Atherosclerotic heart disease of native coronary artery with angina pectoris with documented spasm; M19.90 Unspecified osteoarthritis, unspecified site; K21.9 Gastro-esophageal reflux disease without esophagitis; E78.5 Hyperlipidemia, unspecified; Z79.899 Other long term (current) drug therapy; Z79.2 Long term (current) use of antibiotics; Z79.891 Long term (current) use of opiate analgesic; W18.30XA Fall on same level, unspecified, initial encounter
CPT/HCPCS: 12001; 70450; J2001